=== PATIENT | female | born 2005 | race Caucasian/White ===

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

== ENCOUNTER 2024-06-11 06:18 | Emergency (ER) | payer MEDICAID, SELFPAY ==
--- NOTE | ~2024-06-11 | XR_ITS ---
CLINICAL HISTORY: s p reduction of anterior dislocation Exam: AP and scapular Y-views of the right shoulder. Comparison: January 20, 2022. Findings: The note states that the patient underwent reduction of an anterior dislocation. Please note that pre reduction images are not available for review. Alignment at the glenohumeral joint is anatomic on these images. No bony Bankart fractures identified. Chronic Hill-Sachs lesion is again seen. AC joint is anatomically aligned. Impression: Anatomic alignment with chronic Hill-Sachs lesion. This document has been electronically signed by: Jose Gracia MD on 06/11/2024 06:55:36
[2024-06-11 06:22] VITALS: BP 124/76; PULSE 20; O2SAT 99
--- NOTE | 2024-06-11 06:26 | ED.GENADULT ---
HPI - General Adult General Chief complaint: Extremity Injury, Upper Stated complaint: Non-traumatic shoulder dislocation x2hr Time Seen by Provider: 06/11/24 06:26 History of Present Illness ED Provider: Felicitas HPI narrative: The patient is a 18-year-old female who says that she had fallen asleep sleeping on her stomach with her arms above her head. She suspects that at some point she must have rolled in his strange way because she woke up in acute pain and a sense of having dislocated her right shoulder. She was uncomfortable and called an ambulance and came to the hospital. The patient says that she has had approximately 3 previous right shoulder dislocations. The 1st time was 2 or 3 years ago. She says that sometimes the shoulder has spontaneously reduced itself. She thinks she has had only 1 previous shoulder reduction in an emergency room. She thinks this was at [facility] 2 years ago. The patient says that she followed up with [facility] in [place] but she does not recall any specific recommendations. She says that all of her dislocations has been fairly spontaneous and without any significant associated force or injury. Related Data Previous Rx's ?Medication ?Instructions ?Recorded ibuprofen 400 mg tablet 400 mg PO Q6H PRN pain #14 tabs 06/11/24 Allergies Allergy/AdvReac Type Severity Reaction Status Date / Time No Known Allergies Allergy Verified 06/11/24 06:29 Review of Systems Review of Systems: Yes all other systems are reviewed and are negative [facility] Past Medical History Medical History (Updated 06/11/24 @ 06:53 by Brian Polk MD) Shoulder dislocation, recurrent Social History Social History Alcohol intake: never Smoked in Last 30 Days: No Use of substances other than those prescribed or required for medical reasons: No Advance Directives: No Advance Directives Information Provided: No Do you have a plan to hurt others: No Plan Patient : No Physical Exam ED Vital Signs: Vital Signs - 24 hr 06/11/24 06:27 06/11/24 07:07 Temperature 98.3 F 98.3 F Pulse Rate 69 69 Respiratory Rate 16 16 Blood Pressure 132/88 132/88 Pulse Oximetry 98 98 Oxygen Delivery Method Room Air Room Air BMI result Body Mass Index 21.5 Const Other: The patient is awake, alert, pleasant, cooperative. She had an obvious deformity to the right shoulder. HENMT Other: The face is unremarkable. The face is symmetrical. Mucous membranes moist. Eyes General: appearance normal, both eyes and all related structures Neck Neck: Yes full ROM Resp Effort & Inspection: normal respiratory effort Auscultation: clear to auscultation bilaterally Cardio Rate: regular rate Rhythm: regular rhythm Heart sounds: S1 normal heart sound present and S2 normal heart sound present Skin Other: The skin is intact and unremarkable Neuro Other: The patient is awake and alert with a normal mental status. She has grossly normal cranial nerves. She has intact strength and sensation in the right hand. Extrem Other: The patient had an obvious deformity at the right shoulder consistent with an anterior shoulder dislocation. There was dimpling of the skin over the glenoid socket. Medications Administered Discontinued Medications Generic Name Dose Route Start Last Admin Trade Name Freq PRN Reason Stop Dose Admin Acetaminophen 975 mg 06/11/24 06:52 06/11/24 07:00 Acetaminophen 325 Mg Tablet PO 06/11/24 06:53 975 mg ONCE ONE Administration Ibuprofen 400 mg 06/11/24 06:52 06/11/24 07:00 Ibuprofen 400 Mg Tablet PO 06/11/24 06:53 400 mg ONCE ONE Administration Procedures Orthopedic Joint Reduction Joint #1: Time Out Performed: Yes Side: right Joint Reduction Location: shoulder Analgesia: none Shoulder Technique Used (if applicable): scapula manipulation and external rotation Post-reduction neuro exam: intact Post-reduction vascular: intact Post Reduction X-Ray Obtained: Yes Post Reduction X-Ray Results: reduced Splint Applied: Yes Patient Tolerated Procedure: well Additional Comments: The the patient was placed on the stretcher so that she was sitting on the side of the stretcher. The head of the stretcher was elevated to 90 degrees. The patient's left hip and shoulder were adjacent to the upright portion of the stretcher. I performed scapular manipulation of the right scapula from behind the patient. An diagnostic assistant stabilized the right forearm and hand with the wrist supinated. In addition to scapular manipulation I put pressure on the patient's elbow to exert downward pressure on the arm. Meanwhile the right arm was externally rotated. Although there was no palpable sense of reduction when these maneuvers were finished the deformity had resolved and she was able to touch her right hand to her left shoulder. Postreduction x-ray showed normal anatomic alignment. The patient tolerated the procedure well. Shoulder immobilizer was applied after the x-ray. Medical Decision Making Medical Decision Making [facility] Narrative: The patient is a 18-year-old female who has had previous shoulder dislocations of the right arm. It seems as though her shoulder dislocations has been associated with no significant trauma. These seem to be spontaneous or near spontaneous events. She is also sometimes been able to reduce her shoulder herself or they have spontaneously reduced. She arrived with an obvious deformity consistent with a an anterior dislocation. She allowed us to make an effort to reduce the shoulder without sedation and this was successful. She was placed in a shoulder immobilizer. She has previously followed up with the [facility]. Now that she is 18 she will be given the contact information for [facility]. Discharge Plan Discharge Clinical Impression: Anterior dislocation of right shoulder Patient Disposition: Home, Self-Care Instructions: Shoulder Dislocation (ED), Shoulder Immobilizer (ED) Additional Instructions: Please contact the orthopedic office today for a follow up appointment next week. In the meantime you should keep your arm in the shoulder immobilizer to help reduce the risk of a re-dislocation. Wear the shoulder immobilizer while sleeping. You may remove the shoulder immobilizer during the day for hygiene and other practical purposes. When you remove the shoulder immobilizer do your best to keep your arm close to your body. This will reduce the risk of a read dislocation. I have sent a prescription for ibuprofen that you may use as needed for discomfort. My hope is that you will get an appointment at the orthopedic office next week and the orthopedic office will give you additional advice as to how long you need to continue wearing the shoulder immobilizer. Return to the emergency room if significantly worse. Prescriptions: New ibuprofen 400 mg tablet 400 mg PO Q6H PRN (Reason: pain) Qty: 14 0RF Referrals: [facility] [Provider Group] [facility] [Provider Group] (recurrent right shoulder dislocation) Stand Alone Forms: Work/School Release Interventions: ED Discharge Assessment Last Done: 06/11/24 07:07 Print Language: Kinyarwanda
[2024-06-11 06:27] VITALS: BP 132/88; PULSE 69; RESP 16; TEMP 36.8; O2SAT 98; BMI 21.5
[2024-06-11] MEDS: Acetaminophen 325 MG TABLET 975 MG PO (07:00)
[2024-06-11] MEDS: Ibuprofen 400 MG TABLET PO (07:00)
[2024-06-11 07:07] VITALS: BP 132/88; PULSE 69; RESP 16; TEMP 36.8; O2SAT 98
== END 2024-06-11 07:11 | disposition home or self-care (01) ==
PROVIDERS: Emergency Provider Emergency Medicine
DX: M24.411 Recurrent dislocation, right shoulder (principal); M25.511 Pain in right shoulder
CPT/HCPCS: 23650; 73030; 99283; 99284

== ENCOUNTER → 2024-06-11 06:26 | Outpatient (BNV) | payer MEDICAID, SELFPAY | PROVIDERS: Emergency Provider Emergency Medicine; Visit Provider Radiology Diagnostic Radiology | DX: M24.411 Recurrent dislocation, right shoulder (principal) | CPT/HCPCS: 73030 ==

== ENCOUNTER 2024-06-29 08:35 | Outpatient (REF) | payer MEDICAID, SELFPAY ==
--- NOTE | ~2024-06-29 | XR_ITS ---
EXAMINATION: XR SHOULDER, RIGHT CLINICAL INFORMATION: M25.511 - Pain in right shoulder COMPARISON: None available. TECHNIQUE: AP external rotation, Grashey, scapular Y, and axillary views of the right shoulder. FINDINGS: Normal bone mineralization. No fracture, dislocation, or suspicious bone lesion. Normal alignment. The glenohumeral joint is normal. The AC joint is normal. There is a type III acromion. No undersurface spurring. The subacromial space is preserved. Remainder of the soft tissue and bony structures appear normal. XR/XR shoulder RT min 2V IMPRESSION: Normal right shoulder. Electronically signed by: Antonio Becker MD 06/29/2024 03:22 PM EDT
--- OUTSIDE RECORDS SUMMARY | 2024-06-29 09:06 | XMS_ITS | Encounter Summary ---
Author Organization [employer] Address [address] [facility] [address] [place] [address] Care Team Providers Care Product Development Chemist Name Role Phone Leah Stroud TRANSFER IRON OPERATOR Primary Care Provider Reason for Visit * Reason Onset Date Comments Lab Orders 09/24/2023 Encounter Details Date Type Department Care Team (Late st Contact Info) Description 09/24/2023 Telephone [facility] [address] [place] [address] Leah Stroud NP [address] [place] [address] Lab Orders Social History Tobacco Use Types Packs/Day Years Used Date Smoking Tobacco: Never Passive Smoke Exposure: Never Smokeless Tobacco: Never Alcohol Use Standard Drinks/Week Comments Never 0 (1 standard drink = 0.6 oz pur e alcohol) Depression Answer Date Recorded Patient Health Questionnaire-9 Score 11 06/12/2023 Patient Health Questionnaire-9 Score 11 06/12/2023 Last PHQ-9: Questionnaire Data Not on file 0 06/12/2023 Housing Stability Answer Date Recorded What is your housing situation today? I have shamar castaneda 01/29/[address] you li ve. Do you have problems with any of the following? None of the above 01/29/2023 Food Insecurity Answer Date Recorded Within the past 12 months, y ou worried that your food would run out before you got money to buy more: Never True 01/29/2023 Within the past 12 months,th e food you bought just didn't last and you didn't have enough money to get more: Never True Transportation Answer Date Recorded In the past 12 months, has l ack of transportation kept you from medical appts, meetings, work or from getting things needed for daily living? No 01/29/2023 Utilities Answer Date Recorded In the past 12 months, has t he electric, gas, oil or water company threatened to shut off services in your home? No 01/29/2023 Depression Answer Date Recorded Patient Health Questionnaire-2 Score 3 06/12/2023 Comments Unknown Sex and Gender Information Value Date Recorded Sex Assigned at Female 01/15/2022 10:20 AM EDT Legal Sex Female 10:20 AM EDT Gender Identity Female 01/15/2022 10:20 AM EDT Sexual Orientation Choose not to disclose 2021 10:20 AM EDT documented as of this encounter Miscellaneous Notes * Telephone Encounter - Carrie Blanco RN - 09/24/2023 4:06 PM EDT T/C to pt. To inform TB test order is in system, No answer. LVM to call back on [phone]. 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 documented in this encounter Plan of Treatment Upcoming Encounters Date Type Department Care Team (Late st Contact Info) Description 09/09/2024 2:45 PM EDT Office Visit [facility] [address] [place] [address] Leah Stroud NP [address] [place] [address] documented as of this encounter Visit Diagnoses Not on filedocumented in this encounter Additional Health Concerns Assessment Noted Time PHQ-9 Depression Total Score: 11 024 9:49 AM EDT documented as of this encounter Care Teams Product Development Chemist Relationship Specialty Start Date End Date Leah Stroud NP [address] [place] [address] PCP - General Family Medicine 01/09/23 documented as of this encounter
--- OUTSIDE RECORDS SUMMARY | 2024-06-29 09:06 | XMS_ITS | Clinical Summary ---
Author Organization [employer] Address [address] [facility] 7[address] [place] [address] Care Team Providers Care Aquaculture Director Name Role Phone Leah Stroud PEOPLESOFT Primary Care Provider [phone] Allergies No known active allergies Medications * This document contains information received from the source organization and may not represent a complete record from that organization. ibuprofen 200 MG tablet 1-2 tablet by oral route every 6 hours prn pain, fever 9 Active multivitamin with minerals (Cerovite) 18-400 mg-mcg tablet tablet 1 tab by oral route daily 1 Active ibuprofen 200 MG tablet Take 200 mg by mouth 3 times daily. 9 Active polyethylene glycol, PEG, 3350 (MiraLax) 17 GM/SCOOP powder Take 17 g by mouth 1 (one) time. 9 Active ondansetron ODT (Zofran-ODT) 4 MG disintegrating tablet Take 4 mg by mouth every 8 (eight) hours if needed for nausea. 1 Active hydrOXYzine HCl (Atarax) 25 MG tabletIndications:M oderate anxiety Take 1 capsule by mouth s needed for anxiety. Do not take more than 4 capsules in one day 30 tablet 1 4 Active escitalopram (Lexapro) 5 MG tabletIndications:M oderate anxiety TAKE 1 TABLET BY MOUTH EVERY DAY 30 tablet 4 Active Active Problems Problem Noted Date Diagnosed Date Mood disorder 2023 Assessment & Plan (10/22/2023 1:43 PM EDT): During IBH Consult Melissa presenting with excessive worry/anxiety, difficulty controlling worry, restless/keyed up/On edge, difficulty concentrating/Mind going blank , irritability, and sleep disturbance difficulty staying asleep and Abnormally elevated mood, Decreased need for sleep, Flight of ideas, and Excessive goal directed activity, loss of interest in activities/hobbies, sense of emptiness, noticeable mood changes, and indecisiveness ; for a period of 0-6 mo, for all symptoms in the context of relationship issues. Melissa reports having mood swings over the last months. She was taking medication to improve sxs prescribed by psychiatrist, however, pt stopped taking meds after seeing slight improvement. Complicated romantic relationship, financial struggle and college transition is identified as trigger for sxs. During today's consult, pt was engaged with active, reflective listening and validation of emotions. Reviewed and assessed for risk, current stressors and protective factors using open-ended questions. Pt agreed to be evaluated by a psych provider and re-engage in med management. MDQ performed during session. Pt screened positive for Mood Disorder. Further evaluation needed to r/o Bipolar Dx. PLAN: (check all that apply) Continue with current services (defined as services in the past 12 months) Behavioral Health Integration Plan External OP therapy referral and OP psychiatry Referral Patient Self Plan Patient to utilize skills provided in intervention , Patient [facility] as needed, Comply with medication , Patient to engage in OP therapy , and Patient to reach out to [facility] as needed. Pt was referred to OP individual therapy. Referral will be re-sent as expedite including psychiatry services so that pt can get a psychiatry evaluation to rule out Bipolar Disorder. Mild depression 09/30/2023 Routine physical examination 05/01/2023 Assessment & Plan (05/01/2023 12:30 PM EST): -declined STI testing today -states flu vaccine obtained at [facility]. Will bring documentation -Healthy diet and exercise teaching completed: Eat a variety of fruit and vegetables, whole grains such as whole-wheat flour, bulgur (cracked wheat), oatmeal, and brown rice. Intake protein from beans, nuts, fish, and lean meats. Eat low-fat or fat- free dairy products. Limit highly processed foods such as hot dogs, sandwich meat, etc. 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) -has coping mechanism and breathing exercises provided by previous therapist -agreeable to clinical calling to re-initiate therapy services Assessment & Plan (10/22/2023 1:43 PM EDT): During IBH Consult Melissa presenting with excessive worry/anxiety, difficulty controlling worry, restless/keyed up/On edge, difficulty concentrating/Mind going blank , irritability, and sleep disturbance difficulty staying asleep and Abnormally elevated mood, Decreased need for sleep, Flight of ideas, and Excessive goal directed activity, loss of interest in activities/hobbies, sense of emptiness, noticeable mood changes, and indecisiveness ; for a period of 0-6 mo, for all symptoms in the context of relationship issues. Melissa reports having mood swings over the last months. She was taking medication to improve sxs prescribed by psychiatrist, however, pt stopped taking meds after seeing slight improvement. Complicated romantic relationship, financial struggle and college transition is identified as trigger for sxs. During today's consult, pt was engaged with active, reflective listening and validation of emotions. Reviewed and assessed for risk, current stressors and protective factors using open-ended questions. Pt agreed to be evaluated by a psych provider and re-engage in med management. MDQ performed during session. Pt screened positive for Mood Disorder. Further evaluation needed to r/o Bipolar Dx. PLAN: (check all that apply) Continue with current services (defined as services in the past 12 months) Behavioral Health Integration Plan External OP therapy referral and OP psychiatry Referral Patient Self Plan Patient to utilize skills provided in intervention , Patient to reach out to [facility] team as needed, Comply with medication , Patient to engage in OP therapy , and Patient to reach out to [facility] as needed. Pt was referred to OP individual therapy. Referral will be re-sent as expedite including psychiatry services so that pt can get a psychiatry evaluation to rule out Bipolar Disorder. Assessment & Plan (09/30/2023 12:05 PM EDT): PROGRESS NOTE: ID: Melissa is a 17 y.o. Black or choose not to disclose-identified cis-female with previous documented hx of Anxiety services including OP Psychotherapy who presents for Anxiety and Depression During IBH Consult Melissa presenting with loss of interests/pleasure , changes in sleep difficulty falling asleep, trouble concentrating, fatigue/loss of energy and excessive worry/anxiety, difficulty controlling worry, restless/keyed up/On edge, easily fatigued, difficulty concentrating/Mind going blank , irritability, and sleep disturbance difficulty falling asleep; for a period of 6-12 mo, for all symptoms in the context of adjusting to collage and financial struggle. PLAN: New/Additional Services needed PCP management Off-site services for Behavioral Health Integration Plan External OP therapy referral Patient Self Plan Patient to utilize skills provided in intervention , Patient to reach out to [facility] team as needed, Comply with medication , Patient to engage in OP therapy , and Patient to reach out to [facility] as needed Assessment & Plan (06/19/2023 1:32 PM EDT): -continue sertraline 25 mg daily -patient declined dose increase of sertraline at this time -will repeat MICAELA-7 questioner at next visit -continue non-pharmacological measures -follow-up 4 weeks via telehealth Assessment & Plan (06/12/2023 2:00 PM EDT): -MICAELA-7 and PHQ-9 scores 11 -will start sertraline for maintenance and trial hydroxyzine 25 mg for needed use -continue non-pharmacological measures - referral placed to assist with establishing with therapist -follow-up 1 week via telehealth to assess medication effectiveness Assessment & Plan (05/01/2023 10:56 AM EST): -MICAELA-7 score 11 -daily exercise encouraged -deep breathing exercises reinforced, meditation, and journaling advised - referral placed to assist with re-initiating therapy -will consider low dose medication if no improvement in symptoms -follow-up 6-8 weeks Viral wart on finger 05/01/2023 Assessment & Plan (05/01/2023 10:58 AM EST): -removed via cryotherapy -infection monitoring advised -return to clinic if infection presents or finger mobility affected Dysmenorrhea 12/27/2020 Hydronephrosis 06/01/2018 Hepatic calcification 10/30/2016 Resolved Problems Problem Noted Date Diagnosed Date Resolved Date Anxiety 07/26/2023 09/30/2023 Assessment & Plan (08/04/2023 1:01 PM EDT): Tolerating sertraline 25 mg, requesting trial of 50 mg, reestablishing therapy. Increase to 50 mg, monitor for side effects Follow up in 2 months with pcp sooner prn Encounters Date Type Department Care Team Description 06/11/2024 Orders Only [facility] External Provider, [facility] 06/01/2024 Telephone [facility] [address] [place] [address] Leah Stroud NP 05/29/2024 Population Health Risk Score Community [facility] ([facility]) Department [address] [id number] Provider, Population Health Generic 05/28/2024 Telephone [facility] [address] [place] [address] Chuck Fairbanks MA July recall 04/16/2024 Telephone [facility] [address] [place] [address] Chuck Fairbanks MA telephone call from Last 3 Months Immunizations Name Administration Dates Next Due DTaP 03/16/2009, 6,10/15/2005,12/18 HPV 9-Valent 05/15/2016,10/27/2015 Hep A, ped/adol, 2 dose 01/16/2007,01/23/2006 Hep B, Adolescent or Pediatric 4,10/15/2005,06/25/2005,12/18,2004 Hep B, adult 01/01/2024 Hib (HbOC) 01/23/2006,10/15/2005,2004 IPV 03/16/2009, 6,06/21/2005,03/29 Influenza injectable quadriv alent preservative free 12/27/2020,12/24/2019,04/09/2018 Influenza live intranasal trivalent 12/19/2012 Influenza, live, intranasal 12/19/2012 Influenza, seasonal, injecta ble, preservative free 01/01/2024 MMR 03/16/2009,01/23/2006 Meningococcal MCV4P ACYW-135 12/27/2020,10/27/19 Pfizer Covid-19 Vaccine 12+ Bivalent 08/10/2022 Pneumococcal Conjugate PCV 13 08/09/2009 Pneumococcal Conjugate PCV 7 10/15/2005, 06/25/2005,03/29/2005,12/18 Tdap 10/27/2015 Varicella 03/16/2009,01/23/2006 Family History Medical History Relation Name Comments Hypertension Mother Relation Name Status Comments Mother Social History Tobacco Use Types Packs/Day Years Used Date Smoking Tobacco: Never Passive Smoke Exposure: Never Smokeless Tobacco: Never Tobacco Cessation:Counseling Given: Not Answered Alcohol Use Standard Drinks/Week Comments Never 0 (1 standard drink = 0.6 oz pur e alcohol) Alcohol Answer Date Recorded How often do you have a drink containing alcohol ? 0 2023 How many drinks containing a lcohol do you have on a typical day when you are drinking? 0 2023 How often do you have six or more drinks on one occasion? 0 2023 Depression Answer Date Recorded Patient Health Questionnaire-9 Score 8 09/30/2023 Patient Health Questionnaire-9 Score 8 09/30/2023 Last PHQ-9: Questionnaire Data Not on file 0 09/30/2023 Housing Stability Answer Date Recorded What is [...] Answer Date Recorded Patient Health Questionnaire-2 Score 1 09/30/2023 Internet Access Answer Date Recorded Internet Access Q1 Yes 11/18/2023 Internet Access Q2 Not on file 11/18/2023 Comments Unknown Sex and Gender Information Value Date Recorded Sex Assigned at Female 01/15/2022 10:20 AM EDT Legal Sex Female 10:20 AM EDT Gender Identity Female 01/15/2022 10:20 AM EDT Sexual Orientation Choose not to disclose 2021 10:20 AM EDT Last Filed Vital Signs Vital Sign Reading Time Taken Comments Blood Pressure 116/79 2023 10:54 AM EDT Pulse 79 2023 10:54 AM EDT Temperature 35.7 ??C (96.2 ??F) 06/12/2023 9:43 AM ED T Respiratory Rate 26 2023 10:5 4 AM EDT Oxygen Saturation 99% 2023 10: 54 AM EDT Inhaled Oxygen Concentration - - Weight 83.6 kg (184 lb 6.4 oz) 10/16/19 10:54 AM EDT Height 177.8 cm (5' 10 ) 2023 10: 54 AM EDT Body Mass Index 26.46 2023 10:54 AM EDT Body Mass Index Percentile 86.37% 10/15 10:54 AM EDT Growth Chart: CDC (Girls, 2- 20 Years) Plan of Treatment Upcoming Encounters Date Type Department Care Team (Late st Contact Info) Description 09/09/2024 2:45 PM EDT Office Visit [facility] [address] [place] [address] Leah Stroud NP [address] [place] [address] Health Maintenance Due Date Last Done Comments Chlamydia and Gonorrhea Screening 2004 HIV Screening 2004 Family Planning (PISQ) 10/17/2019 Hepatitis C Screening 2022 Depression Screening 09/29/2024 09/30/2023, 09/30/19 24 Alcohol/Substance Use Screening 10/15/2024 2023 SDOH Screening 10/15/2024 2023 Tobacco Screening 10/15/2024 2023 DTaP/Tdap/Td Vaccines (6 - Td or Tdap) 10/26/2025 10/27/2015, 03/16/2009, 01/23/2006, Additional history exists Zoster Vaccines (1 of 2) 2054 RSV Patients and Patients Aged 60 years or older (1 - 1-dose 75+ series) 10/17/2079 HIB Vaccines Completed 01/23/2006, 09/17, 2004 Hepatitis A Vaccines Completed 01/16/2007, 01/24/20 IPV Vaccines Completed 03/16/2009, 09/17, 06/21/2005, Additional history exists MMR Vaccines Completed 03/16/2009, 01/23/2006 Varicella Vaccines Completed 03/16/2009, 01/23/2006 Pneumococcal Vaccine: Pediatrics (0 to 5 Years) and At-Risk Patients (6 to 49) Years) Completed 08/09/2009, 10/15/2005, 06/25/2005, Additional history exists Fluoride Varnish Discontinued 02/17/2015, , 12/19/2012, Additional history exists HPV Vaccines Completed 05/15/2016, 10/27/2015 Meningococcal Vaccine Completed 12/27/2020, 016 COVID-19 Vaccine Completed 11/13/2023, , 08/04/2021, Additional history exists Hepatitis B Vaccines Completed 01/01/2024, 11/19/2023, 10/15/2005, Additional history exists Influenza Vaccine Completed 01/01/2024, , 12/24/2019, Additional history exists RSV under 20 months Aged Out No longe r eligible based on patient's age to complete this topic Rotavirus Vaccines Aged Out No longer eligible based on patient's age to complete this topic Procedures Procedure Name Priority Date/Time Associated Diagnosis Comments XR SHOULDER 2+ VIEWS RIGHT Routine 06/11/2024 6:55 AM EDT TOPICAL APPLICATION OF FLUORIDE VARNISH Routine 02/17/2015 12:00 AM EST from Last 3 Months or Most Recently Relevant to Health Maintenance Results * XR Shoulder 2+ Views Right (06/11/2024 6:55 AM EDT) Anatomical Region Laterality Modality Upper Extremities, Shoulder Right Radi ographic Imaging 06/11/2024 6:55 AM EDT Narrative 06/11/2024 6:56 AM EDT ? [facility] ?[address] ?[place] [address] ?XRay Report ? Signed ? Patient: Fabienne,Melissa ?MR#: [id number] ? : 2005 ?Acct:[id number] ? Age/Sex: 18 / F ?ADM Date: 06/11/24 ? Loc: HO.ED ? Attending Dr: ? Ordering Physician: Brian Polk MD ?? Date of Service: 06/11/24 ?? Procedure(s): XR shoulder RT min 2V ?? Accession Number(s): [id number] ? cc: [facility]; Brian Polk MD ? CLINICAL HISTORY: s p reduction of anterior dislocation ? Exam: AP and scapular Y-views of the right shoulder. ? Comparison: January 20, 2022. ? Findings: ? The note states that the patient underwent reduction of an anterior ?? dislocation. Please note that pre reduction images are not available for ?? review. ?? Alignment at the glenohumeral joint is anatomic on these images. No bony ?? Bankart fractures identified. Chronic Hill-Sachs lesion is again seen. ?? AC joint is anatomically aligned. ? Impression: ? Anatomic alignment with chronic Hill-Sachs lesion. ? This document has been electronically signed by: Jose Gracia MD on ?? 06/11/2024 06:55:36 ? Dictated By: ?Jose Gracia MD ? Signed By: ?<Electronically signed by Jose Gracia MD in OV> ? 06/11/24 0656 ? DD/ 0655 ? TD/TT: 06/11/24 0655 ? Rail Car Repairer: ? Procedure Note Anay Weeks - 06/11/2024 [facility] [address] [facility] [place] [address] XRay Report Signed Patient: Melissa Loving#: [id number] : 2005Acct:[id number] Age/Sex: 18 / FADM Date: 06/11/24 Loc: HO.ED Attending Dr: Ordering Physician: Brian Polk MD Date of Service: 06/11/24 Procedure(s): XR shoulder RT min 2V Accession Number(s): [id number] cc: [facility]; Brian Polk MD CLINICAL HISTORY: s p reduction of anterior dislocation Exam: AP and scapular Y-views of the right shoulder. Comparison: January 20, 2022. Findings: The note states that the patient underwent reduction of an anterior dislocation. Please note that pre reduction images are not available for review. Alignment at the glenohumeral joint is anatomic on these images. No bony Bankart fractures identified. Chronic Hill-Sachs lesion is again seen. AC joint is anatomically aligned. Impression: Anatomic alignment with chronic Hill-Sachs lesion. This document has been electronically signed by: Jose Gracia MD on 06/11/2024 06:55:36 Dictated By: Jose Gracia MD Signed By: <Electronically signed by Jose Gracia MD in OV> 06/11/24 0656 DD/ TD/TT: 06/11/2455 Rail Car Repairer: [facility] External Provider IMG XR PROCEDURES Final Result from Last [address] [place] [address] [place] [address] C3 Care Teams Aquaculture Director Relationship Specialty Start Date End Date Leah Stroud NP [address] [place] [phone] PCP - General Family Medicine 01/09/23
--- OUTSIDE RECORDS SUMMARY | 2024-06-29 09:06 | XMS_ITS | Clinical Summary ---
Author Organization [facility] ity Address [address] [place] [address] Care Team Providers Care Power Line Installer Name Role Phone Unavailable Primary Care Provider Unavailabl e Social History Tobacco Use Types Packs/Day Years Used Date Smoking Tobacco: Never Assessed Comments Unknown Sex and Gender Information Value Date Recorded Sex Assigned at Not on file Legal Sex Female 5:05 AM EST Gender Identity Not on file Sexual Orientation Not on file Plan of Treatment Health Maintenance Due Date Last Done Comments Gonorrhea/Chlamydia Screening 2004 Varicella Vaccines (1 of 2 - 13+ 2-dose series) 2017 HPV Vaccines (1 - 3-dose series) 10/17/2019 Meningococcal B Vaccine (1 o f 2 - Standard) 2020 DTaP,Tdap,and Td Vaccines (1 - Tdap) 10/17/2023 Hepatitis B Vaccines (1 of 3 - 19+ 3-dose series) 10/17/2023 COVID-19 Vaccine (1 - 2023-2 5 season) 2023 Influenza Vaccine (Season Ended) 2024 HIB Vaccines Aged Out No longer eligi ble based on patient's age to complete this topic Hepatitis A Vaccines Aged Out No long er eligible based on patient's age to complete this topic IPV Vaccines Aged Out No longer eligi ble based on patient's age to complete this topic MMR Vaccines Aged Out No longer eligi ble based on patient's age to complete this topic Meningococcal ACWY Vaccine Aged Out N o longer eligible based on patient's age to complete this topic Pneumococcal Vaccine: Pediat rics (0 to 5 Years) and At-Risk Patients (6 to 64 Years) Aged Out No longer eligible b ased on patient's age to complete this topic RSV Immunization Patients Un althea 20 months Aged Out No longer eligible b ased on patient's age to complete this topic
--- OUTSIDE RECORDS SUMMARY | 2024-06-29 09:06 | XMS_ITS | Encounter Summary ---
Author Organization [employer] Address 75 [facility] 7t [place] [address] Care Team Providers Care Migrant Leader Name Role Phone Leah Stroud MOTOR POWER CONNECTOR Primary Care Provider Reason for Visit * Reason Onset Date Comments r/s PE 02/22/2023 Encounter Details Date Type Department Care Team ([facility] Contact Info) Description 02/22/2023 Telephone [facility] MEDICINE [address] [place] [address] Leah Stroud NP [address] [place] [address] r/s PE Social History Tobacco Use Types Packs/Day Years Used Date Smoking Tobacco: Never Passive Smoke Exposure: Never Smokeless Tobacco: Never Housing Stability Answer Date Recorded What is [...] off services in your home? No 01/29/2023 Comments Unknown Sex and Gender Information Value Date Recorded Sex Assigned at Female 01/15/2022 10:20 AM EDT Legal Sex Female 10:20 AM EDT Gender Identity Female 01/15/2022 10:20 AM EDT Sexual Orientation Choose not to disclose 2021 10:20 AM EDT documented as of this encounter Miscellaneous Notes * Telephone Encounter - Ced Donovan - 02/22/2023 11:58 AM EST Tc from pt requesting to r/s appt for PE on 02/06/2023 . Please contact pt at [phone] documented in this encounter Plan of Treatment Upcoming Encounters Date Type Department Care Team (Late st Contact Info) Description 09/09/2024 2:45 PM EDT Office Visit [facility] MEDICINE [address] [place] [address] Leah Stroud NP [address] [place] [address] documented as of this encounter Visit Diagnoses Not on filedocumented in this encounter Care Teams Migrant Leader Relationship Specialty Start Date End Date Leah Stroud NP [address] [place] [address] PCP - General Family Medicine 01/09/23 documented as of this encounter
== END 2024-06-29 08:36 | disposition home or self-care (01) ==
LOC: HO.HOSX 08:35
DX: M25.511 Pain in right shoulder (principal)
CPT/HCPCS: 73030; 99212

== ENCOUNTER 2024-06-29 10:51 | Outpatient (AMB) | payer MEDICAID, SELFPAY ==
--- NOTE | 2024-06-29 10:55 | A.OFFVIS_ITS ---
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 Per ED note patient fell asleep with her arms above her head and thinks at some point she rolled over the wrong way resulting in her waking up with pain. Hx of multiple right shoulder dislocation in past, states her shoulder has reduced on its own spontaneously in past. She says each time she has had a dislocation she has gone to the ED for it. She reports no pain, no numbness, no tingling currently. She says for a few days in the beginning she felt discomfort with lifting using her right arm but this has resolved. Allergies No Known Allergies Allergy (Verified 06/29/24 11:01) HPI HPI INSURANCE VERIFICATION REPRESENTATIVE- 2 week f/u shoulder dislocation: Details: Melissa is a 18 year old right hand dominant female who presents today for a new patient visit and emergency department follow up for her right shoulder. Per ED note patient fell asleep with her arms above her head and thinks at some point she rolled over the wrong way resulting in her waking up with pain. Hx of multiple right shoulder dislocation in past, states her shoulder has reduced on its own spontaneously in past. She says each time she has had a dislocation she has gone to the ED for it. She reports no pain, no numbness, no tingling currently. She says for a few days in the beginning she felt discomfort with lifting using her right arm but this has resolved. 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 Review of Systems Const All systems reviewed & are unremarkable except as noted in HPI and below Physical Exam Vital Signs: BMI result Body Mass Index 20.7 Extrem Other: On inspection, there is no visible deformity of the right shoulder No edema, erythema, ecchymosis noted No lacerations, abrasions, open areas No evidence of infection Patient reports no tenderness to palpation of the anterior, superior, posterior aspect of the shoulder, no tenderness to palpation of the greater tuberosity Patient is able to forward flex the bilateral shoulders to approximately 100 degrees without difficulty External rotation to approximately 80 degrees bilaterally without difficulty Of note, there does appear to be some hyperlaxity present diffusely in the joints of both the bilateral upper and lower extremities Distal sensation intact Capillary refill brisk Results Reviewed Results Reviewed: X-rays obtained in the office today and independently reviewed by me, Darryn Perkins PA-C, demonstrate chronic Hill-Sachs lesion, but no fracture or acute bony abnormality of the right shoulder. Assessment & Plan Assessment & Plan (1) Dislocation of right shoulder joint: Code(s): S43.004A - Unspecified dislocation of right shoulder joint, initial encounter Category: Medical Plan 1. Recurrent dislocation of right shoulder Most recent occurred while patient was sleeping Patient was seen with Dr. Borges, who was available to see the patient with me in clinic today, and a collaborative treatment plan was formed: I educated the patient about the condition. I discussed both operative and nonoperative treatment options. The patient would like to proceed with surgery. The risks and benefits of operative treatment were discussed with the patient and the patient wishes to proceed with surgery. These risks include, but are not limited to, risk of damage to blood vessels, nerves, tendons, infection, recurrence, incomplete relief of preoperative symptoms, persistent pain, possible need for further surgery, and the risks associated with regional blocks and/or anesthesia. Plan is to take the patient to the operating room at some point in the next few weeks for the following procedures: 1. Right shoulder capsular plication All of the preoperative paperwork including the consent was discussed today. All of the patient's questions were answered in the clinic today. The patient understands that they will be in contact with our assistant professor surgical technology to discuss scheduling their procedure. Patient denies diabetes, blood thinners, asthma, heart issues, lung issues, kidney issues, or current smoking. MR arthrogram also ordered to assess the health of the right shoulder joint prior to surgery Orders: Orders XR shoulder RT min 2V Today M25.511 - Pain in right shoulder FL arthrogram shoulder RT Today M19.011 - Primary osteoarthritis, right shoulder PT Evaluation and Treatment Today S43.004A - Unspecified dislocation of right shoulder joint, initial encounter Coding Level of Care Code New Pt Level 4 (47610) Diagnoses Dislocation of right shoulder joint S43.004A
[2024-06-29 11:01] VITALS: BMI 20.7
--- OUTSIDE RECORDS SUMMARY | 2024-06-29 12:41 | XMS_ITS | Encounter Summary ---
Author Organization [employer] Address 75 [facility] 7t [place] [address] Care Team Providers Care Pocket Stitcher Name Role Phone Leah Stroud COMMERCIAL LOAN ASSISTANT Primary Care Provider Reason for Visit * Reason Onset Date Comments Lab Orders 09/24/2023 Encounter Details Date Type Department Care Team (Late st Contact Info) Description 09/24/[address] [facility] MEDICINE [address] [place] [address] Leah Stroud NP [address] [place] [address] Lab Orders Social History Tobacco Use Types [...] No answer. LVM to call back on [phone]. 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 documented in this encounter Plan of Treatment Upcoming Encounters Date Type Department Care Team (Late st Contact Info) Description 09/09/2024 2:45 PM EDT Office Visit [facility] MEDICINE [address] [place] [address] Leah Stroud NP [address] [place] [address] documented as of this encounter Visit Diagnoses Not on filedocumented in this encounter Additional Health Concerns Assessment Noted Time PHQ-9 Depression Total Score: 11 024 9:49 AM EDT documented as of this encounter Care Teams Pocket Stitcher Relationship Specialty Start Date End Date Leah Stroud NP [address] [place] [address] PCP - General Family Medicine 01/09/23 documented as of this encounter
--- OUTSIDE RECORDS SUMMARY | 2024-06-29 12:41 | XMS_ITS ---
Author Name [facility] Organization Unknown Encounters Encounter Type Encounter Reason Primary Diagnosis Location Date Ambulatory [facility]. ([facility]) 03/04/2024
--- OUTSIDE RECORDS SUMMARY | 2024-06-29 12:41 | XMS_ITS | Clinical Summary ---
Author Organization [employer] Address 75 [facility] 7t [place] [address] Care Team Providers Care Diesel Service Journeyman Name Role Phone Leah Stroud UMBRELLA FRAME MAKER Primary Care Provider [phone] Allergies No known active allergies Medications * [...] intervention , [facility], Comply with medication , [...] testing today -states flu vaccine obtained at [facility]. 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) -has [...] intervention , Patient to reach out to [facility] team as needed, Comply with medication , [...] intervention , [facility], Comply with medication , [...] Department Care Team Description 06/11/2024 Orders Only [facility] External Provider, [facility] 06/01/2024 Telephone [facility] MEDICINE [address] [place] [address] Leah Stroud NP 05/29/2024 Population Health Risk Score Community [facility] (C3) Department [address] [phone] Provider, Population Health Generic 05/28/2024 Telephone [facility] MEDICINE [address] [place] [address] Chuck Fairbanks MA July recall 04/16/2024 Telephone [facility] MEDICINE [address] [place] [address] Chuck Fairbanks MA telephone call from Last [...] Description 09/09/2024 2:45 PM EDT Office Visit [facility] MEDICINE [address] [place] [address] Leah Stroud NP [address] [place] [address] Health Maintenance Due Date Last Done Comments [...] EDT Narrative 06/11/2024 6:56 AM EDT ? [facility] ?[address] ?[place] [address] ?XRay Report ? Signed ? Patient: Fabienne,Melissa ?MR#: [id number] ? : 2005 ?Acct:[id number] ? Age/Sex: 18 / F ?ADM Date: 06/11/24 ? Loc: HO.ED ? Attending Dr: ? Ordering Physician: Brian Polk MD ?? Date of Service: 06/11/24 ?? Procedure(s): XR shoulder RT min 2V ?? Accession Number(s): [id number] ? cc: [facility]; Brian Polk MD ? CLINICAL HISTORY: [...] DD/ 0655 ? TD/TT: 06/11/24 0655 ? Senior Solutions Engineer: ? Procedure Note Anay Weeks - 06/11/2024 [facility] [address] [facility] [place] [address] XRay Report Signed Patient: Melissa Loving#: [id number] : 2005Acct:[id number] Age/Sex: 18 / FADM Date: 06/11/24 Loc: HO.ED Attending Dr: Ordering Physician: Brian Polk MD Date of Service: 06/11/24 Procedure(s): XR shoulder RT min 2V Accession Number(s): [id number] cc: [facility]; Brian Polk MD CLINICAL HISTORY: s [...] in OV> 06/11/24 0656 DD/ TD/TT: 06/11/2455 Senior Solutions Engineer: [facility] External Provider IMG XR PROCEDURES Final Result from Last [address] [place] [address] C3 Care Teams Diesel Service Journeyman Relationship Specialty Start Date End Date Leah Stroud NP [address] [place] [address] PCP - General Family Medicine 01/09/23
--- OUTSIDE RECORDS SUMMARY | 2024-06-29 12:41 | XMS_ITS | Encounter Summary ---
Author Organization [employer] Address [address] [facility] 7t [place] [address] Care Team Providers Care Motor And Chassis Inspector Name Role Phone Leah Stroud DRY CLEANING COUNTER CLERK Primary Care Provider Reason for Visit * Reason Onset Date Comments r/s PE 02/22/2023 Encounter Details Date Type Department Care Team ([facility] Contact Info) Description 02/22/2023 Telephone [facility] MEDICINE [address] [place] [address] Leah Stroud NP [address] [place] [address] r/s PE Social History Tobacco Use Types [...] on 02/06/2023 . Please contact pt at [phone] documented in this encounter Plan of Treatment Upcoming Encounters Date Type Department Care Team (Late st Contact Info) Description 09/09/2024 2:45 PM EDT Office Visit [facility] MEDICINE [address] [place] [address] Leah Stroud NP [address] [place] [address] documented as of this encounter Visit Diagnoses Not on filedocumented in this encounter Care Teams Motor And Chassis Inspector Relationship Specialty Start Date End Date Leah Stroud NP [address] [place] [address] PCP - General Family Medicine 01/09/23 documented as of this encounter
--- OUTSIDE RECORDS SUMMARY | 2024-06-29 12:41 | XMS_ITS | Clinical Summary ---
Author Organization [facility] ity Address [address] [place] [address] Care Team Providers Care Glove Parts Cutter Name Role Phone Unavailable Primary Care Provider [...]
== END 2024-06-29 11:49 | disposition home or self-care (01) ==
LOC: HO.HOS 10:51
DX: S43.004A Unspecified dislocation of right shoulder joint, initial encounter (principal)
CPT/HCPCS: 99204

== ENCOUNTER → 2024-06-29 10:52 | Outpatient (BNV) | payer MEDICAID, SELFPAY | PROVIDERS: Visit Provider Radiology Diagnostic Radiology | DX: M25.511 Pain in right shoulder (principal) | CPT/HCPCS: 73030 ==

== ENCOUNTER 2024-07-14 12:36 | Outpatient (REF) | payer MEDICAID, SELFPAY ==
--- NOTE | ~2024-07-14 | FL_ITS ---
EXAMINATION: XR ARTHROGRAM SHOULDER, RIGHT CLINICAL INFORMATION: M19.011 - Primary osteoarthritis, right shoulder ; right shoulder instability; recurrent dislocations. TECHNIQUE: Following full and informed consent, the patient was placed in the supine position on the fluoroscopy table. Following this, the right shoulder joint was localized utilizing fluoroscopic guidance. The area was marked, and overlying skin prepped and draped in a sterile manner. 1% Lidocaine was utilized for anesthesia to the skin and subcutaneous tissues. Following this, a 22-gauge needle was advanced into the shoulder joint space utilizing fluoroscopic guidance, with the upper inner quadrant of the humeral head targeted. Intra-articular positioning was confirmed with a small amount of Omnipaque 300 contrast injection. Following this, approximately 5 mL of a mixture consisting of 0.1 mL Gadavist with 5 mL of Omnipaque 300 contrast material was injected into the joint space under fluoroscopic control. The needle was then removed. The patient tolerated the procedure well and there were no immediate complications. FLUOROSCOPY TIME: 12 seconds. Total number of fluoroscopic images : 1 DAP: 12.7 uGym^2 FINDINGS: No evidence of a full-thickness rotator cuff tear is present. FL/FL arthrogram shoulder RT IMPRESSION: 1. Successful intra-articular instillation of dilute gadolinium contrast into the right shoulder joint. The patient will undergo subsequent MRI. Electronically signed by: Antonio Becker MD 07/14/2024 02:28 PM EDT
--- NOTE | ~2024-07-14 | MR_ITS ---
EXAMINATION: MR ARTHROGRAM RIGHT SHOULDER CLINICAL INFORMATION: Right shoulder instability, recurrent dislocations; primary osteoarthritis right shoulder. COMPARISON: No prior MRI. Right shoulder radiographs 06/29/2024. TECHNIQUE: Multiplanar multisequence MR imaging of the right shoulder was done after the intra-articular administration of dilute gadolinium contrast. Examination performed on a 1.5 Adelita Siemens unit utilizing standard sequences. FINDINGS: Rotator Cuff and Biceps Tendon: Supraspinatus: There is a partial undersurface tear of the critical zone of the supraspinatus tendon measuring 7 mm in transverse diameter, and 9 mm in AP diameter, undermining approximately 30% of the tendon. (Series 9, image 12). Remainder of the tendon and muscle belly intact and normal in appearance. Infraspinatus: There is a partial 30% undersurface tear of the critical zone of the infraspinatus tendon, and in continuity the supraspinatus undersurface tear. Normal muscle belly. Subscapularis: Mild increased signal in the undersurface of the tendon, likely minimal fraying/tendinopathy No discrete tear. The muscle belly appears normal. Teres Minor: Intact and normal in signal. No definite tear. Normal muscle belly. Biceps Long Head: Normally located within the bicipital groove. Normal morphology. The tendon within the rotator interval is intact and normal in signal. AC Joint and Acromiohumeral Arch: The AC joint has a normal appearance without significant spurring or periarticular edema. There is a type II acromion. No significant undersurface spurs. No loss of the subacromial space. Glenohumeral Joint and Labrum: The anterior labrum is torn with an associated periosteal sleeve avulsion, extending into the anterior aspect of the superior labrum, and undermining the bicipital anchor. There is also a mild irregularity of the inferior labrum at the junction of the anterior, approximate 8:00 axis. Contrast undercutting the posterior labrum also suggesting mild tearing. The glenohumeral joint is normal in appearance without significant cartilage abnormality, subchondral bone plate edema, or degenerative change. No evidence of loose body. Osseous Structures: -There appears to be a subtle old Hill-Sachs deformity of the posterior lateral humeral head. No osseous edema to suggest contusion or fracture. No infiltrating abnormal bone marrow signal. Spino-glenoid Notch: Normal. Quadrilateral Space: Normal. Other: Mild increased signal in the subacromial/subdeltoid bursa, findings consistent with mild bursitis. MR/MR shoulder RT w con IMPRESSION: 1. Findings consistent with anterior labral tear with associated periosteal sleeve avulsion, extending into the anterosuperior labrum and undermining the bicipital anchor. Suspect subtle tearing of the posterior labrum as well. 2. Partial undersurface tear of the supraspinatus tendon within the critical zone, approximately 30% thickness. 3. Partial undersurface tear of the infraspinatus tendon within the critical zone, in continuity with the supraspinatus tear. 4. Mild subacromial/subdeltoid bursitis. 5. Subtle Hill-Sachs deformity of the humeral head suspected. No bony edema to suggest acute injury. Electronically signed by: Antonio Becker MD 07/16/2024 12:40 PM EDT
[2024-07-14] MEDS: Lidocaine HCl 1 % MPF 30 ML VIAL INTRAARTIC (13:57)
[2024-07-14] MEDS: iohexoL 300 MG/ML 50 ML INFUS..BTL 10 ML INTRAARTIC (13:59)
--- OUTSIDE RECORDS SUMMARY | 2024-07-14 14:30 | XMS_ITS | Encounter Summary ---
Author Organization [employer] Address 75 [facility] 7t [place] [address] Care Team Providers Care Information Technology Analyst Name Role Phone Leah Stroud REGULATORY COMPLIANCE SPECIALIST Primary Care Provider Reason for Visit * Reason Onset Date Comments r/s PE 02/22/2023 Encounter Details Date Type Department Care Team ([facility] Contact Info) Description 02/22/2023 Telephone [facility] MEDICINE [address] [place] [address] Leah Stroud NP [address] [place] [address] r/s PE Social History Tobacco Use Types [...] on 02/06/2023 . Please contact pt at [phone] documented in this encounter Plan of Treatment Upcoming Encounters Date Type Department Care Team (Late st Contact Info) Description 09/09/2024 2:45 PM EDT Office Visit [facility] MEDICINE [address] [place] [address] Leah Stroud NP [address] [place] [address] documented as of this encounter Visit Diagnoses Not on filedocumented in this encounter Care Teams Information Technology Analyst Relationship Specialty Start Date End Date Leah Stroud NP [address] [place] [address] PCP - General Family Medicine 01/09/23 documented as of this encounter
--- OUTSIDE RECORDS SUMMARY | 2024-07-14 14:30 | XMS_ITS | Clinical Summary ---
Author Organization [employer] Address [address] [facility] 7t [place] [address] Care Team Providers Care Associate Principal Name Role Phone Leah Stroud SHOP FOREMAN Primary Care Provider [phone] Allergies No known active allergies Medications * [...] intervention , [facility] as [facility], Comply with medication [...] today -states flu vaccine obtained [facility]. 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 [...] intervention , Patient to reach out to [facility] team as needed, Comply with medication [...] intervention , [facility] as needed, Comply with medication [...] Department Care Team Description 06/11/2024 Orders Only [facility] External Provider, [facility] 06/01/2024 Telephone [facility] MEDICINE [address] [place] [address] Leah Stroud NP 05/29/2024 Population Health Risk Score Community [facility] (C[facility]) Department [address] [address] Provider, Population Health Generic 05/28/2024 Telephone [facility] MEDICINE [address] [place] [address] Chuck Fairbanks MA July recall 04/16/2024 Telephone [facility] MEDICINE [address] [place] [address] Chuck Fairbanks MA telephone call from Last [...] Description 09/09/2024 2:45 PM EDT Office Visit [facility] MEDICINE [address] [place] [address] Leah Stroud NP [address] [place] [address] Health Maintenance Due Date Last Done Comments [...] EDT Narrative 06/11/2024 6:56 AM EDT ? [facility] ?[address] ?[place] [address] ?XRay Report ? Signed ? Patient: Fabienne,Melissa ?MR#: [id number] ? : 2005 ?Acct:[id number] ? Age/Sex: 18 / F ?ADM Date: 06/11/24 ? Loc: HO.ED ? Attending Dr: ? Ordering Physician: Brian Polk MD ?? Date of Service: 06/11/24 ?? Procedure(s): XR shoulder RT min 2V ?? Accession Number(s): [id number] ? cc: [facility]; Brian Polk MD ? CLINICAL HISTORY: s [...] DD/ 0655 ? TD/TT: 06/11/24 0655 ? Cad Intern: ? Procedure Note Anay Weeks - 06/11/2024 [facility] [address] [place] [address] XRay Report Signed Patient: Melissa Loving#: [id number] : 2005Acct:[id number] Age/Sex: 18 / FADM Date: 06/11/24 Loc: HO.ED Attending Dr: Ordering Physician: Brian Polk MD Date of Service: 06/11/24 Procedure(s): XR shoulder RT min 2V Accession Number(s): [id number] cc: [facility]; Brian Polk MD CLINICAL HISTORY: s p [...] in OV> 06/11/24 0656 DD/ TD/TT: 06/11/2455 Cad Intern: [facility] External Provider IMG XR PROCEDURES Final Result from Last [address] [place] [address] C3 Care Teams Associate Principal Relationship Specialty Start Date End Date Leah Stroud NP [address] [place] [address] PCP - General Family Medicine 01/09/23
--- OUTSIDE RECORDS SUMMARY | 2024-07-14 14:30 | XMS_ITS | Encounter Summary ---
Author Organization [employer] Address [address] [facility] 7t [place] [address] Care Team Providers Care Full Stack Python Developer Name Role Phone Leah Stroud METAL HARDENER Primary Care Provider Reason for Visit * Reason Onset Date Comments Lab Orders 09/24/2023 Encounter Details Date Type Department Care Team (Late st Contact Info) Description 09/24/2023 Telephone [facility] MEDICINE [address] [place] [address] Leah Stroud NP [address] [place] [address] Lab Orders Social History Tobacco Use Types [...] No answer. LVM to call back on [phone]. 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 documented in this encounter Plan of Treatment Upcoming Encounters Date Type Department Care Team (Late st Contact Info) Description 09/09/2024 2:45 PM EDT Office Visit [facility] MEDICINE [address] [place] [address] Leah Stroud NP [address] [place] [address] documented as of this encounter Visit Diagnoses Not on filedocumented in this encounter Additional Health Concerns Assessment Noted Time PHQ-9 Depression Total Score: 11 024 9:49 AM EDT documented as of this encounter Care Teams Full Stack Python Developer Relationship Specialty Start Date End Date Leah Stroud NP [address] [place] [address] PCP - General Family Medicine 01/09/23 documented as of this encounter
--- OUTSIDE RECORDS SUMMARY | 2024-07-14 14:30 | XMS_ITS | Clinical Summary ---
Author Organization [facility] ity Address [address] [place] [address] Care Team Providers Care Fringing Machine Operator Name Role Phone Unavailable Primary Care Provider [...]
== END 2024-07-14 12:37 | disposition home or self-care (01) ==
LOC: HO.XRAY 12:36
DX: S43.004A Unspecified dislocation of right shoulder joint, initial encounter (principal); M19.011 Primary osteoarthritis, right shoulder; M75.111 Incomplete rotator cuff tear or rupture of right shoulder, not specified as traumatic; M75.51 Bursitis of right shoulder
CPT/HCPCS: 23350; 73040; 73222; J2003; Q9967

== ENCOUNTER → 2024-07-14 12:47 | Outpatient (BNV) | payer MEDICAID, SELFPAY | PROVIDERS: Visit Provider Radiology Diagnostic Radiology | DX: M19.011 Primary osteoarthritis, right shoulder (principal) | CPT/HCPCS: 23350; 73040 ==

== ENCOUNTER 2024-10-23 13:13 | Outpatient (REF) | payer MEDICAID, SELFPAY ==
--- OUTSIDE RECORDS SUMMARY | 2024-10-23 13:16 | XMS_ITS | Encounter Summary ---
Author Organization [employer] Address [address] [facility] 7[address] [place] [address] Care Team Providers Care Acidity Tester Name Role Phone Leah Stroud MOBILE HOME INSTALLER Primary Care Provider Reason for Visit * Reason Onset Date Comments Lab Orders 09/24/2023 Encounter Details Date Type Department Care Team ([facility] st Contact Info) Description 09/24/2023 Telephone [facility] MEDICINE [address] [place], [place] [phone] Leah Stroud NP [address] [place] [address] Lab Orders Social History Tobacco Use Types [...] No answer. LVM to call back on [phone]. 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 documented in this encounter Plan of Treatment Not on file documented as of this encounter Visit Diagnoses Not on filedocumented in this encounter Additional Health Concerns Assessment Noted Time PHQ-9 Depression Total Score: 11 024 9:49 AM EDT documented as of this encounter Care Teams Acidity Tester Relationship Specialty Start Date End Date Leah Stroud NP [address] [place] [address] PCP - General Family Medicine 01/09/23 documented as of this encounter
--- OUTSIDE RECORDS SUMMARY | 2024-10-23 13:16 | XMS_ITS | Clinical Summary ---
Author Organization [facility] ity Address [address] [place] [address] Care Team Providers Care Hot Dog Vendor Name Role Phone Unavailable Primary Care Provider [...] Vaccine (1 - 2023-2 5 season) 2023 Depression Screening 03/18/2024 Influenza Vaccine (#1) 2024 HIB Vaccines Aged Out No longer [...] 5 Years) and At-Risk Patients (6 to 49 Years) Aged Out No longer eligible b ased on patient's age to complete this topic RSV Immunization Patients Un althea 20 months Aged Out No longer eligible b ased on patient's age to complete this topic
[2024-10-23 16:16] LABS: MANUAL DIFF FLAG NO
[2024-10-23 16:20] LABS: Hematocrit 41.5 % (37.0-47.0); Hemoglobin 14.1 g/dl (12.0-16.0); Imm Gran Abs Auto 0.01 X10*3/uL (0.00-0.03); Imm Gran Pct Auto 0.2 % (0.0-0.4); Lymphocytes Absolute Auto 1.7 X10*3/uL (1.2-4.9); Mean Corpuscular HGB Conc 34.0 g/dl (31.0-35.0); Mean Corpuscular Hemoglobin 31.2 pg (27.0-33.0); Mean Corpuscular Volume 91.8 fL (80.0-98.0); NRBC Abs Auto 0.000 X10*3/uL (0.0-0.012); NRBC Pct Auto 0.0 /100WBC (0.0-0.2); Platelet Count 319 X10*3/uL (160-400); Red Blood Count 4.52 X10*6/uL (4.20-5.50); White Blood Count 5.2 X10*3/uL (4.8-10.8)
[2024-10-23 16:30] LABS: Cholesterol 154 mg/dL (<200); HDL Cholesterol 36 mg/dL (>40); Triglycerides 137 mg/dL (<150)
[2024-10-26 08:03] LABS: Syphilis Screen Nonreactive (Nonreactive)
[2024-10-26 08:42] LABS: HBS Num1 > 1000.00 mIU/mL (0-7.99); HBc Num1 0.08 S/CO (0.00-0.79); HBsAGNum1 0.51 S/CO (0.00-0.99); HIV Num 1 0.06 S/CO (0.00-0.99); Hepatitis B Surface Antigen Negative (Negative); ~HepC Num1 0.09 S/CO (0.00-0.79); ~Hepatitis B Surface Antibody REACTIVE (Nonreactive); ~Hepatitis C Antibody Nonreactive (Nonreactive)
== END 2024-10-23 13:14 | disposition home or self-care (01) ==
LOC: HO.HHCL 13:13
PROVIDERS: PCP Nurse Practitioner; Visit Provider Nurse Practitioner
DX: Z00.00 Encounter for general adult medical examination without abnormal findings (principal); Z11.3 Encounter for screening for infections with a predominantly sexual mode of transmission; Z11.4 Encounter for screening for human immunodeficiency virus [HIV]
CPT/HCPCS: 36415; 80061; 85025; 86704; 86706; 86780; 86803; 87340; 87389

== ENCOUNTER 2024-11-13 13:01 | Outpatient (REF) | payer MEDICAID, SELFPAY ==
--- OUTSIDE RECORDS SUMMARY | 2024-11-13 13:23 | XMS_ITS | Encounter Summary ---
Author Organization [employer] Address [address] [facility] [address] [place] [address] Care Team Providers Care Electrolysis Needle Operator Name Role Phone Leah Stroud GEAR LAPPING MACHINE OPERATOR Primary Care Provider Reason for Visit * Reason Onset Date Comments Lab Orders 09/24/2023 Encounter Details Date Type Department Care Team ([facility] st Contact Info) Description 09/24/2023 Telephone [facility]INE [address] [place], [place] [phone] Leah Stroud NP [address] [place] [address] Lab Orders Social History Tobacco Use Types [...] No answer. LVM to call back on [phone]. * Telephone Encounter - Kellie Roa - [...] documented as of this encounter Care Teams Electrolysis Needle Operator Relationship Specialty Start Date End Date Leah Stroud NP [address] [place] [address] PCP - General Family Medicine 01/09/23 documented as of this encounter
--- OUTSIDE RECORDS SUMMARY | 2024-11-13 13:23 | XMS_ITS | Encounter Summary ---
Author Organization [employer] Address [address] [facility] [address] [place] [address] Care Team Providers Care Sexton Helper Name Role Phone Leah Stroud EQUINE MANAGER Primary Care Provider Reason for Visit * Reason Onset Date Comments r/s PE 02/22/2023 Encounter Details Date Type Department Care Team ([facility] st Contact Info) Description 02/22/2023 Telephone [facility] MEDICINE [address] [place] [address] Leah Stroud NP [address] [place] [address] r/s PE Social History Tobacco Use Types [...] on 02/06/2023 . Please contact pt at [phone] documented in this encounter Plan of Treatment Not on file documented as of this encounter Visit Diagnoses Not on filedocumented in this encounter Care Teams Sexton Helper Relationship Specialty Start Date End Date Leah Stroud NP [address] [place] [address] PCP - General Family Medicine 01/09/23 documented as of this encounter
--- OUTSIDE RECORDS SUMMARY | 2024-11-13 13:23 | XMS_ITS | Encounter Summary ---
Author Organization [facility] [facility] [employer] Address [address] [facility] [address] [place] [address] Care Team Providers Care Cull Grader Name Role Phone Leah Stroud NP Primary Care Provider [phone] Encounter Details Date Type Department Care Team ([facility] st Contact Info) Description 10/29/2024 Results Follow-Up [facility] MEDICINE [address] [place] [address] Leah Stroud NP [address] [place] [address] Hepatitis B Core Antibody, Total, Hepatitis B Surface Antibody, Qualitative, Hepatitis B Surface Antigen, EIA Social History Tobacco Use Types Packs/Day Years [...] Answer Date Recorded Patient Health Questionnaire-9 Score 0 09/09/2024 Patient Health Questionnaire-9 Score 0 09/09/2024 Last PHQ-9: Questionnaire Data Not on file 0 09/09/2024 Housing Stability Answer Date Recorded What is [...] Answer Date Recorded Patient Health Questionnaire-2 Score 0 09/09/2024 Internet Access Answer Date Recorded Internet Access Q1 Yes 11/18/2023 Internet Access Q2 Not on file 11/18/2023 Comments Unknown Sex and Gender Information Value Date Recorded Sex Assigned at Female 01/15/2022 10:20 AM EDT Legal Sex Female 10:20 AM EDT Gender Identity Female 01/15/2022 10:20 AM EDT Sexual Orientation Choose not to disclose 2021 10:20 AM EDT documented as of this encounter Plan of Treatment Not on file documented as of this encounter Visit Diagnoses Not on filedocumented in this encounter Additional Health Concerns Assessment Noted Time PHQ-9 Depression Total Score: 0 09/10/19 4:12 PM EDT documented as of this encounter Care Teams Cull Grader Relationship Specialty Start Date End Date Leah Stroud NP [address] [place] [address] PCP - General Family Medicine 01/09/23 documented as of this encounter
--- OUTSIDE RECORDS SUMMARY | 2024-11-13 13:23 | XMS_ITS | Encounter Summary ---
Author Organization [employer] Address [address] [facility] [address] [place] [address] Care Team Providers Care Spot Welder Name Role Phone Leah Stroud DISPUTE SPECIALIST Primary Care Provider Encounter Details Date Type Department Care Team ([facility] st Contact Info) Description 11/13/2024 Telephone [facility] MEDICINE [address] [place], [place] [phone] Leah Stroud NP [address] [place], [place] [phone] Social History Tobacco Use Types Packs/Day Years [...] encounter Miscellaneous Notes * Telephone Encounter - Roshni Merrill RN - 11/13/2024 12:49 PM EDT Patient presented to office requesting an order for tuberculosis screening for school. 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 Per standing order- lab order for TS spot created, printed, and given to the patient. documented in this encounter Plan of Treatment Scheduled Orders Name Type Priority Associated Diagnoses Orde r Schedule T-SPOT .TB Lab Routine Screening for tuberculosis Expected: 11/13/2024 (Approximate), Expires: 11/13/2025 documented as of this encounter Visit Diagnoses Diagnosis Screening for tuberculosis Screening examination for pulmonary tuberculosis documented in this encounter Additional Health Concerns Assessment Noted Time PHQ-9 Depression Total Score: 0 09/10/19 4:12 PM EDT documented as of this encounter Care Teams Spot Welder Relationship Specialty Start Date End Date Leah Stroud NP [address] [place] [address] PCP - General Family Medicine 01/09/23 documented as of this encounter
--- OUTSIDE RECORDS SUMMARY | 2024-11-13 13:24 | XMS_ITS | Clinical Summary ---
Author Organization [facility] ity Address [address] [place] [address] Care Team Providers Care Botanical Technical Officer Name Role Phone Unavailable Primary Care Provider [...]
--- OUTSIDE RECORDS SUMMARY | 2024-11-13 13:24 | XMS_ITS | Clinical Summary ---
Author Organization [employer] Address [address] [facility] 7t [place] [address] Care Team Providers Care Audio/Video Engineer Name Role Phone Leah Stroud IRINA Primary Care Provider [phone] Allergies No known active allergies Medications * This document contains information received from the source organization and may not represent a complete record from that organization. No known medications Active Problems Problem Noted Date Diagnosed Date [...] intervention , Patient to reach out to [facility] team as needed, Comply with medication [...] testing today -states flu vaccine obtained at [facility]. 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 team as needed, Comply with medication [...] cis-female with previous documented hx of Anxiety MH services including OP Psychotherapy who presents for [...] intervention , Patient to reach out to [facility] team as needed, Comply with medication , Patient to engage in OP BH therapy , and Patient to reach out to [facility] as needed Assessment & Plan (06/19/2023 1:32 [...] Encounters Date Type Department Care Team Description 11/13/2024 Telephone [facility] [address] [place] [address] Leah Stroud NP 10/30/2024 Telephone [facility] [address] [place] [address] Leah Stroud NP 10/29/2024 Results Follow-Up [facility] [address] [place] [address] Leah Stroud NP Hepatitis B Core Antibody, Total, Hepatitis B Surface Antibody, Qualitative, Hepatitis B Surface Antigen, EIA 10/29/2024 Results Follow-Up [facility] [address] [place] [phone] Leah Stroud NP CBC auto differential, Lipid Panel, Standard, HIV-1/2 Antigen and Antibodies, Fourth Generation, with Reflexes, Additional followed-up results: 2 10/23/[address] [address] Leah Stroud NP 09/09/2024 2:45 PM EDT Office Visit [address] [address] Leah Stroud NP Annual physical exam (Primary Dx); Encounter for health-related screening; Screening for venereal disease; Encounter for immunization 09/09/2024 Travel 09/08/[address] [address] Leah Stroud NP Chart Prep 09/01/2024 Patient Outreach [facility] [address] [place], [place] [phone] Leah Stroud NP Pre-visit Planning (SDOH negative. Tobacco screening negative. ) from Last 3 Months Immunizations Immunization Administration Dates Next Due DTaP 03/16/2009, 6,10/15/2005,12/18 HPV 9-Valent 05/15/2016,10/27/2015 Hep A, ped/adol, 2 dose 01/16/2007,01/23/2006 Hep B, Adolescent or Pediatric 4,10/15/2005,06/25/2005,12/18,2004 Hep B, adult 09/09/2024,01/01/2024 Hib (HbOC) 01/23/2006,10/15/2005,2004 IPV 03/16/2009, 6,06/21/2005,03/29 Influenza injectable quadriv alent preservative free 12/27/2020,12/24/2019,04/09/2018 Influenza live intranasal trivalent 12/19/2012 Influenza, live, intranasal 12/19/2012 Influenza, seasonal, injecta ble, preservative free 01/01/2024 MMR 03/16/2009,01/23/2006 Meningococcal MCV4P ACYW-135 12/27/2020,10/27/19 16 Meningococcal Polysaccharide A,C,Y,W-135 TT Conjugate 09/09/2024 Pfizer Covid-19 Vaccine 12+ Bivalent 08/10/2022 Pneumococcal [...] the past 12 months, has t he [employer], gas, oil or water company threatened to [...] Sign Reading Time Taken Comments Blood Pressure 110/79 09/09/2024 2:59 PM EDT Pulse 80 09/09/2024 2:59 PM EDT Temperature 36.7 C (98 F) 09/09/2024 2:59 PM EDT Respiratory Rate 20 09/09/2024 2:59 PM EDT Oxygen Saturation 99% 2023 10:54 AM EDT Inhaled Oxygen Concentration - - Weight 73.2 kg (161 lb 6.4 oz) 09/09/2024 2:59 P M EDT Height 177.8 cm (5' 10 ) 09/09/2024 2:59 PM EDT Body Mass Index 23.16 09/09/2024 2:59 PM EDT Plan of Treatment Health Maintenance Due Date Last Done Comments Chlamydia and Gonorrhea Screening 2004 Alcohol/Substance Use Screening 2016 Family Planning (PISQ) 10/17/2019 Meningococcal B Vaccine (1 of 2 - Standard) 2020 Influenza Vaccine (#1) 2024 , 12/27/2020, 12/24/2019, Additional history exists SDOH Screening 09/01/2025 09/01/2024 Depression Screening 09/09/2025 09/09/2024, 09/10/19 Disability Screening 09/09/2025 09/09/2024 Tobacco Screening 09/09/2025 09/09/2024 DTaP/Tdap/Td Vaccines (6 - Td or Tdap) 10/26/2025 10/27/2015, 03/16/2009, 01/23/2006, Additional history exists Zoster Vaccines (1 of 2) 2054 RSV Patients and Patients Aged 60 years or older (1 - 1-dose 75+ series) 10/17/2079 HIB Vaccines Completed 01/23/2006, 09/17, 2004 Hepatitis A Vaccines Completed 01/16/2007, 01/24/20 IPV Vaccines Completed 03/16/2009, 09/17, 06/21/2005, Additional history exists Pneumococcal Vaccine: Pediatrics (0 to 5 Years) and At-Risk Patients (6 to 49) Years Completed 08/09/2009, 10/15/2005, 06/25/2005, Additional history exists HPV Vaccines Completed 05/15/2016, 10/27/2015 COVID-19 Vaccine Completed 11/13/2023, , 08/04/2021, Additional history exists Hepatitis B Vaccines Completed 09/09/2024, 01/01/2024, 11/19/2023, Additional history exists Meningococcal Vaccine Completed 09/09/2024 , 12/27/2020, 10/27/2015 HIV Screening Completed 10/23/2024 Hepatitis C Screening Completed 10/23/2024 RSV under 20 months Aged Out No longe r eligible based on patient's age to complete this topic Rotavirus Vaccines Aged Out No longer eligible based on patient's age to complete this topic Procedures Procedure Name Priority Date/Time Associated Diagnosis Comments HEPATITIS B SURFACE ANTIGEN, EIA Routine 10/23/2024 1:16 PM EDT Healthcare maintenance HEPATITIS B SURFACE ANTIBODY, QUALITATIVE Routine 10/23/2024 1:16 PM EDT Healthcare maintenance HEPATITIS B CORE AB TOTAL Routine 10/23/2024 1:16 PM EDT Healthcare maintenance HEPATITIS C AB W/REFL TO HCV RNA, QN, PCR Routine 10/23/2024 1:16 PM EDT Screening for venereal disease SYPHILIS SCREEN Routine 10/23/2024 1:16 PM EDT Screening for venereal disease HIV 1/2 ANTIGEN/ANTIBODY, FOURTH GENERATION W/RFL Routine 10/23/2024 1:16 PM EDT Screening for venereal disease LIPID PANEL, STANDARD Routine 10/23/2024 1:16 PM EDT Encounter for health-related screening CBC WITH AUTO DIFFERENTIAL Routine 10/23/2024 1:16 PM EDT Encounter for health-related screening from Last 3 Months Results * Syphilis Screen (10/23/2024 1:16 PM EDT) Pathologist [facility] Syphilis Screen Nonreactive Nonreactive [facility] Blood Venous blood specimen / Unknown 10/23/2024 1:16 PM EDT 10/23/2024 4:12 PM EDT us Leah Stroud PLANT OPERATIONS MANAGER LAB BLOOD ORDERABLES Final Resu lt [facility] [address] [place] [phone] * CBC auto differential (10/23/2024 1:16 PM EDT) Pathologist [facility] White Blood Count 5.2 4.8 - 10.8 X10*3/uL [facility] Red Blood Count 4.52 4.20 - 5.50 X10*6/uL [facility] Hemoglobin 14.1 12.0 - 16.0 g/dl [facility] Hematocrit 41.5 37.0 - 47.0 % [facility] Mean Corpuscular Volume 91.8 80.0 - 98.0 fL [facility] Mean Corpuscular Hemoglobin 31.2 27.0 - 33.0 pg [facility] Mean Corpuscular HGB Conc 34.0 31.0 - 35.0 g/dl [facility] Red Cell Distribution Width 12.1 11.0 - 16.0 % [facility] Platelet Count 319 160 - 400 X10*3/uL [facility] Mean Platelet Volume 11.5 9.4 - 12.3 fL [facility] Neutrophils Percent Auto 60.4 45 - 73 % [facility] Imm Gran Pct Auto 0.2 0.0 - 0.4 % [facility] Lymphocytes Percent Auto 32.1 20 - 40 % [facility] Monocytes Percent Auto 5.4 2 - 11 % [facility] Eosinophils Percent Auto 1.3 0 - 4 % [facility] Basophils Percent Auto 0.6 0 - 2 % [facility] NRBC Pct Auto 0.0 0.0 - 0.2 /100WBC [facility] Neutrophils Absolute Auto 3.2 2.0 - 8.3 x10*3/uL [facility] Imm Gran Abs Auto 0.01 0.00 - 0.03 X10*3/uL [facility] Lymphocytes Absolute Auto 1.7 1.2 - 4.9 X10*3/uL [facility] Monocytes Absolute Auto 0.3 0.1 - 1.2 X10*3/uL [facility] Eosinophils Absolute Auto 0.1 0.0 - 0.4 X10*3/uL [facility] Basophils Absolute Auto 0.0 0.0 - 0.2 X10*3/uL [facility] NRBC Abs Auto 0.000 0.0 - 0.012 X10*3/uL [facility] Blood Venous blood specimen / Unknown 10/23/2024 1:16 PM EDT 10/23/2024 4:12 PM EDT Leah Stroud PLANT OPERATIONS MANAGER LAB BLOOD ORDERABLES Final Resu lt [facility] [address] [place] [phone] [phone] * Hepatitis C Antibody with Reflex to HCV, RNA, Quantitative, Real-Time PCR (10/23/2024 1:16 PM EDT) Hepatitis C Antibody Nonreactive Nonreactive [facility] Comment:Antibodies to HCV no t detected; does not exclude early acuteHCV infection. Blood Venous blood specimen / Unknown 10/23/2024 1:16 PM EDT 10/23/2024 4:10 PM EDT [facility] Final Resu lt Performing Organization Address [facility] Co de Phone Number [facility] [address] [place] [address] [phone] * Hepatitis B Surface Antigen, EIA (10/23/2024 1:16 PM EDT) Pathologist [facility] Hepatitis B Surface Ag Negative Negative [facility] Blood Venous blood specimen / Unknown 10/23/2024 1:16 PM EDT 10/23/2024 4:10 PM EDT [facility] Final Resu lt Performing Organization Address [facility] de Phone Number [facility] [address] [place] [address] [phone] * Hepatitis B Core Antibody, Total (10/23/2024 1:16 PM EDT) Pathologist [facility] Hepatitis B Core Antibody Nonreactive Nonreactive [facility] Blood Venous blood specimen / Unknown 10/23/2024 1:16 PM EDT 10/23/2024 4:10 PM EDT Result [facility] LAB BLOOD ORDERABLES Final Resu lt Performing Organization Address [facility] de Phone Number [facility] [address] [place] [address] [phone] * HIV-1/2 Antigen and Antibodies, Fourth Generation, with Reflexes (10/23/2024 1:16 PM EDT) Pathologist [facility] HIV AB/AG Nonreactive Nonreactive [facility] Comment:HIV-1 p24 Ag and/or HIV-1/HIV-2 Ab not detected.A test result that is nonreactive does not exclude thepossibility of exposure to or infection with HIV-1 and/orHIV-2. Nonreactive results in this assay for individualswith prior exposure to HIV-1 and/or HIV-2 may be due toantigen and antibody levels that are below the limit ofdetection of this assay.The Recurly Alinity HIV Ag/Ab Combo assay result andsupplemental assay results should be interpreted inconjunction with the patient's clinical presentation,history and other laboratory results. If the results areinconsistent with clinical evidence, additional testing issuggested to confirm the result. Blood Venous blood specimen / Unknown 10/23/2024 1:16 PM EDT 10/23/2024 4:10 PM EDT [facility] LAB BLOOD ORDERABLES Final Resu lt Performing Organization Address [facility] Co de Phone Number [facility] [address] [place] [phone] * Hepatitis B Surface Antibody, Qualitative (10/23/2024 1:16 PM EDT) ~Hepatitis B Surface Antibody REACTIVE Nonreactive [facility] Comment:REACTIVE: > 11.99 mI U/mL Blood Venous blood specimen / Unknown 10/23/2024 1:16 PM EDT 10/23/2024 4:10 PM EDT [facility] LAB BLOOD ORDERABLES Final Resu lt Performing Organization Address [facility] Co de Phone Number [facility] [address] [place] [address] [phone] * (ABNORMAL) Lipid Panel, Standard (10/23/2024 1:16 PM EDT) Triglycerides 137 <150 mg/dL [facility] Comment:Desirable Triglyceri de: less than 150 mg/dLBorderline High Triglyceride 150-199 mg/dLHigh Triglyceride: 200-499 mg/dLVery High Triglyceride: greater than or equal to 5OO mg/dL Cholesterol 154 <200 mg/dL [facility] Comment:Desirable Cholestero l: less than 200 mg/dLBorderline High Cholesterol: 200-239 mg/dLHigh Cholesterol: greater than 239 mg/dL LDL Cholesterol Calculated 91 <100 mg/dL [facility] Comment:Desirable LDL: less than 100 mg/dLNear Optimal/Above Optimal LDL: 110- 129 mg/dLBorderline High LDL: 130-159 mg/dLHigh LDL: 160-189 mg/dLVery High LDL: greater than or equal to 190 mg/dL HDL Cholesterol 36(L) >40 mg/dL [facility] Comment:Desirable HDL: great er than 40 mg/dL Note: This HDL assay may give artificially low results in patients with liver disease. Blood Venous blood specimen / Unknown 10/23/2024 1:16 PM EDT 10/23/2024 4:12 PM EDT us Leah Stroud NP LAB BLOOD ORDERABLES Final Resu lt [facility] [address] [place] [phone] from Last 3 Months Insurance [facility] C3 Care Teams Audio/Video Engineer Relationship Specialty Start Date End Date Leah Stroud NP [address] [place] [phone] PCP - General Family Medicine 01/09/23
--- OUTSIDE RECORDS SUMMARY | 2024-11-13 13:24 | XMS_ITS ---
Author Name [facility] Organization Unknown Encounters Encounter Type Encounter Reason Primary Diagnosis Location Date Ambulatory [facility]. ([facility]) 03/04/2024
[2024-11-17 10:03] LABS: TS Negative Control Passed; TS Panel A 0; TS Panel B 0; TS Positive Control Passed; TSpotTB Negative (Negative)
== END 2024-11-13 13:02 | disposition home or self-care (01) ==
LOC: HO.HHCL 13:01
PROVIDERS: PCP Nurse Practitioner; Visit Provider Nurse Practitioner
DX: Z11.1 Encounter for screening for respiratory tuberculosis (principal)
CPT/HCPCS: 36415; 86481

== ENCOUNTER 2025-01-06 17:21 | Outpatient (REF) | payer MEDICAID, SELFPAY ==
--- OUTSIDE RECORDS SUMMARY | 2025-01-06 10:20 | XMS_ITS | Encounter Summary ---
Author Organization [employer] Address [address] [facility] 7t [place] [address] Care Team Providers Care Head Men'S Tennis Coach Name Role Phone Leah Stroud SUPERVISOR ELECTRIC MOTOR TESTING Primary Care Provider [phone] Reason for Visit * Reason Comments Sore Throat Encounter Details Date Type Department Care Team ([facility] st Contact Info) Description 01/06/2025 10:20 AM EDT Office Visit [facility] [address] [place] [address] Onel Caputo MD [address] [place] [address] Acute pharyngitis, unspecified etiology (Primary Dx) Social History Tobacco Use Types Packs/Day Years [...] AM EDT documented as of this encounter Last Filed Vital Signs Vital Sign Reading Time Taken Comments Blood Pressure 120/78 01/06/2025 10:10 AM EDT Pulse 73 01/06/2025 10:10 AM EDT Temperature 36.7 C (98.1 F) 01/06/2025 10:10 AM EDT Respiratory Rate 17 01/06/2025 10:10 AM EDT Oxygen Saturation 99% 01/06/2025 10:10 AM EDT Inhaled Oxygen Concentration - - Weight 71.9 kg (158 lb 9.6 oz) 01/06/2025 10:10 AM EDT Height - - Body Mass Index 22.76 09/09/2024 2:59 PM EDT documented in this encounter Progress Notes * Onel Cpauto MD - 01/06/2025 10:20 AM EDT Subjective Patient ID: Melissa Loving is a 19 y.o. female who presents for Sore Throat. Last seen 09/09/24 for PE. [place] [facility] [place] [facility] Here with friend. Has had symptoms for 4-5 days. Has swollen glands. Decreased appetite. Drinking well and good uop. Denies fever, cough, vomiting or diarrhea. PMH-Patient Active Problem List: Dysmenorrhea Hepatic calcification Hydronephrosis Moderate anxiety Mild depression Mood disorder (CMS/HCC) Review of Systems Constitutional: Negative for fever. HENT: Positive for sore throat. Negative for rhinorrhea. Eyes: Negative for visual disturbance. Respiratory: Negative for cough and shortness of breath. Gastrointestinal: Negative for abdominal pain, diarrhea and vomiting. Musculoskeletal: Negative for back pain. Skin: Negative for rash. Psychiatric/Behavioral: Negative for behavioral problems. Objective Physical Exam Constitutional: General: She is not in acute distress (Comfortable. Easily gives history.). HENT: Right Ear: Tympanic membrane normal. Left Ear: Tympanic membrane normal. Nose: No rhinorrhea. Mouth/Throat: Mouth: Mucous membranes are moist. Comments: 2+symmetric tonsils with posterior pharyngeal erythema. Eyes: Conjunctiva/sclera: Conjunctivae normal. Neck: Comments: Tender a/c nodes. Cardiovascular: Rate and Rhythm: Normal rate and regular rhythm. Heart sounds: No murmur heard. Pulmonary: Effort: Pulmonary effort is normal. No respiratory distress. Breath sounds: Normal breath sounds. Abdominal: Palpations: Abdomen is soft. Tenderness: There is no abdominal tenderness. There is no guarding. Comments: No splenomegaly noted. Skin: General: Skin is warm. Capillary Refill: Capillary refill takes less than 2 seconds. Findings: No rash. Neurological: Mental Status: She is alert and oriented to person, place, and time. Psychiatric: Behavior: Behavior normal. Assessment/Plan Diagnoses and all orders for this visit: Acute pharyngitis, unspecified etiology Having ST and painful cervical adenopathy. Acting well and hydrated. COVID, Flu and strep rapid testing neg. C/w other viral illness. -Symptomatic relief discussed. -Ibuprofen/Acetaminophen prn. -Push fluids. -Throat culture sent. -RTC or ED if respiratory distress, unable to take fluids, decreased u/o, no improvement, worse or concerns. documented in this encounter Plan of Treatment Scheduled Orders Name Type Priority Associated Diagnoses Orde r Schedule Culture, Throat Microbiology Routine Acute pharyngitis, unspecified etiology Ordered: 01/06/2025 documented as of this encounter Procedures Procedure Name Priority Date/Time Associated Diagnosis Comments POCT INFLUENZA B (ID NOW RAPID MOLECULAR) Routine 01/06/2025 10:41 AM EDT Acute pharyngitis, unspecified etiology POCT INFLUENZA A (ID NOW RAPID MOLECULAR) Routine 01/06/2025 10:41 AM EDT Acute pharyngitis, unspecified etiology POCT COVID-19 AG BUSBY ID NOW Routine 01/06/2025 10:41 AM EDT Acute pharyngitis, unspecified etiology POCT RAPID STREP A Routine 01/06/2025 10 :41 AM EDT Acute pharyngitis, unspecified etiology documented in this encounter Results * POCT COVID-19 Ag Busby ID NOW (01/06/2025 10:41 AM EDT) Pathologist [facility] Coronavirus Antigen PCR Negative Negative, Indeterminate, None Detected, Invalid, Specimen unsatisfactory for evaluation, Weakly Positive, 2+ Swab 01/06/2025 10:4 1 AM EDT us Onel Caputo MD POINT OF CARE TEST ENTER/EDIT O RDERABLES Final Result * Influenza A (ID NOW Rapid Molecular) (01/06/2025 10:41 AM EDT) [facility] Influenza A Negative Negative, Indeterminate [facility] Swab 01/06/2025 10:4 1 AM EDT us Onel Caputo MD POINT OF CARE TEST ENTER/EDIT O RDERABLES Final Result [facility] [address] [place] [phone] * Influenza B (ID NOW Rapid Molecular) (01/06/2025 10:41 AM EDT) [facility] Influenza B Negative Negative, Indeterminate [facility] Swab 01/06/2025 10:4 1 AM EDT us Onel Caputo MD POINT OF CARE TEST ENTER/EDIT O RDERABLES Final Result Performing Organization Address [facility] Co de Phone Number [facility] [address] [place] [address] [phone] * POCT rapid strep A manually resulted (01/06/2025 10:41 AM EDT) Rapid Strep A Screen Negative Negative, None Detected [facility] Swab 01/06/2025 10:4 1 AM EDT us Onel Caputo MD POINT OF CARE TEST ENTER/EDIT O RDERABLES Final Result Performing Organization Address [facility] de Phone Number [facility] [address] [place] [phone] [phone] documented in this encounter Visit Diagnoses Diagnosis Acute pharyngitis, unspecified etiology- Primary documented in this encounter Additional Health Concerns Assessment Noted Time PHQ-9 Depression Total Score: 0 09/10/19 25 4:12 PM EDT documented as of this encounter Care Teams Head Men'S Tennis Coach Relationship Specialty Start Date End Date Leah Stroud NP [address] [place] [phone] PCP - General Family Medicine 01/09/23 documented as of this encounter
--- OUTSIDE RECORDS SUMMARY | 2025-01-06 22:13 | XMS_ITS | Encounter Summary ---
Author Organization [employer] Address [address] [facility] 7t [place] [address] Care Team Providers Care Software Sales Manager Name Role Phone Leah Stroud BOX TURNER Primary Care Provider [phone] Encounter Details Date Type Department Care Team (Latest Contact Info) Description 01/06/2025 Travel Social History Tobacco Use Types Packs/Day Years [...] documented as of this encounter Care Teams Software Sales Manager Relationship Specialty Start Date End Date Leah Stroud NP [address] [place] [phone] PCP - General Family Medicine 01/09/23 documented as of this encounter
--- OUTSIDE RECORDS SUMMARY | 2025-01-06 22:13 | XMS_ITS | Encounter Summary ---
Author Organization [employer] Address [address] [facility] 7t [place] [address] Care Team Providers Care Online Content Coordinator Name Role Phone Leah Stroud [employer] TECHNICAL MANAGER Primary Care Provider [phone] Encounter Details Date Type Department Care Team (Latest Contact Info) Description 01/05/2025 Travel Social History Tobacco Use Types Packs/Day [...] documented as of this encounter Care Teams Online Content Coordinator Relationship Specialty Start Date End Date Leah Stroud NP [address] [place] [phone] PCP - General Family Medicine 01/09/23 documented as of this encounter
--- OUTSIDE RECORDS SUMMARY | 2025-01-06 22:13 | XMS_ITS | Encounter Summary ---
Author Organization [employer] Address [address] [facility] 7t [place] [address] Care Team Providers Care Junior Legal Secretary Name Role Phone Leah Stroud PACKING CLERK Primary Care Provider Reason for Visit * Reason Onset Date Comments r/s PE 02/22/2023 Encounter Details Date Type Department Care Team ([facility] st Contact Info) Description 02/22/2023 Telephone [facility] [address] [place] [address] Leah Stroud NP [address] [place] [address] r/s PE Social History Tobacco Use Types [...] on 02/06/2023 . Please contact pt at [phone] documented in this encounter Plan of Treatment Not on file documented as of this encounter Visit Diagnoses Not on filedocumented in this encounter Care Teams Junior Legal Secretary Relationship Specialty Start Date End Date Leah Stroud NP [address] [place] [address] PCP - General Family Medicine 01/09/23 documented as of this encounter
--- OUTSIDE RECORDS SUMMARY | 2025-01-06 22:13 | XMS_ITS | Clinical Summary ---
Author Organization [facility] ity Address [address] [place] [address] Care Team Providers Care Casting Room Helper Name Role Phone Unavailable Primary Care Provider [...] of 3 - 19+ 3-dose series) 10/17/2023 Depression Screening 03/18/2024 COVID-19 Vaccine (1 - 2023-2 5 season) 2024 Influenza Vaccine (#1) 2024 RSV Immunization Adult Patie nts (1 - 1-dose 75+ series) 10/17/2079 HIB Vaccines Aged Out No longer eligi [...]
--- OUTSIDE RECORDS SUMMARY | 2025-01-06 22:13 | XMS_ITS | Clinical Summary ---
Author Organization [employer] Address [address] [facility] 7t [place] [address] Care Team Providers Care Spice Fumigator Name Role Phone Leah Stroud FLAME PLANER Primary Care Provider [phone] Allergies No known active allergies Medications * This document contains information received from the source organization and may not represent a complete record from that organization. ibuprofen 400 MG tablet Take 1 tablet by mouth every 6 (six) hours if needed for pain. 06/11/2024 Active Active Problems Problem Noted Date Diagnosed [...] to reach out to [facility] team as needed, Comply with medication [...] testing today -states flu vaccine obtained at [facility]. 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TB 11/13/[address] [address] Leah Stroud NP 10/30/2024 Telephone [facility] [address] [place] [address] Leah Stroud NP 10/29/2024 Results Follow-Up [address] [address] Leah Stroud NP Hepatitis B Core Antibody, Total, Hepatitis B Surface Antibody, Qualitative, Hepatitis B Surface Antigen, EIA 10/29/2024 Results Follow-Up [address] [address] Leah Stroud NP CBC auto differential, Lipid Panel, Standard, HIV-1/2 Antigen and Antibodies, Fourth Generation, with Reflexes, Additional followed-up results: 2 10/23/[address] [address] Leah Stroud NP from Last 3 Months Immunizations Immunization Administration [...] your housing situation today? I have shamar leonel 01/29/[address] you li [...] 9.6 oz) 01/06/2025 10:10 AM EDT Height 177.8 cm (5' 10 ) 09/09/2024 2:59 PM EDT Body Mass Index 22.76 09/09/2024 2:59 PM EDT Plan of Treatment Health Maintenance Due Date Last Done Comments Chlamydia and Gonorrhea Screening 2004 Alcohol/Substance Use Screening 2016 Family Planning (PISQ) 10/17/2019 Meningococcal B Vaccine (1 of 2 - Standard) 2020 SDOH Screening 09/01/2025 09/01/2024 Depression Screening 09/09/2025 09/09/2024, 09/10/19 25 Disability Screening 09/09/2025 09/09/2024 DTaP/Tdap/Td Vaccines (6 - Td or Tdap) 10/26/2025 10/27/2015, 03/16/2009, 01/23/2006, Additional history exists Tobacco Screening 01/06/2026 01/06/2025 Zoster Vaccines (1 of 2) 2054 RSV [...] Completed 10/23/2024 Hepatitis C Screening Completed 10/23/2024 Influenza Vaccine Completed 12/18/2024, , 12/27/2020, Additional history exists RSV under 20 months Aged Out No longe r eligible based on patient's age to complete this topic Rotavirus Vaccines Aged Out No longer eligible based on patient's age to complete this topic Procedures Procedure Name Priority Date/Time Associated Diagnosis Comments POCT COVID-19 AG BUSBY ID NOW Routine 01/06/2025 10:41 AM EDT Acute pharyngitis, unspecified etiology POCT INFLUENZA A (ID NOW RAPID MOLECULAR) Routine 01/06/2025 10:41 AM EDT Acute pharyngitis, unspecified etiology POCT INFLUENZA B (ID NOW RAPID MOLECULAR) Routine 01/06/2025 10:41 AM EDT Acute pharyngitis, unspecified etiology POCT RAPID STREP A Routine 01/06/2025 10 :41 AM EDT Acute pharyngitis, unspecified etiology T-SPOT(R).TB Routine 11/13/2024 1:11 PM EDT HEPATITIS B SURFACE ANTIGEN, EIA Routine 10/23/2024 [...] screening from Last 3 Months Results * Influenza B (ID NOW Rapid Molecular) (01/06/2025 10:41 AM EDT) Influenza B Negative Negative, Indeterminate [facility] Swab 01/06/2025 10:4 1 AM EDT us Onel Caputo MD POINT OF CARE TEST ENTER/EDIT O RDERABLES Final Result [facility] [address] [place] [address] [phone] * Influenza A (ID NOW Rapid Molecular) (01/06/2025 10:41 AM EDT) Influenza A Negative Negative, Indeterminate [facility] Swab 01/06/2025 10:4 1 AM EDT us Onel Caputo MD POINT OF CARE TEST ENTER/EDIT O RDERABLES Final Result Performing Organization Address [facility]/ZIP Co de Phone Number [facility] [address] [place] [phone] * POCT COVID-19 Ag Busby ID NOW (01/06/2025 10:41 AM EDT) [facility] Coronavirus Antigen PCR Negative Negative, Indeterminate, None Detected, Invalid, Specimen unsatisfactory for evaluation, Weakly Positive, 2+ Swab 01/06/2025 10:4 1 AM EDT us Onel Caputo MD POINT OF CARE TEST ENTER/EDIT O RDERABLES Final Result * POCT rapid strep A manually resulted (01/06/2025 10:41 AM EDT) [facility] Rapid Strep A Screen Negative Negative, None Detected [facility] Swab 01/06/2025 10:4 1 AM EDT us Onel Caputo MD POINT OF CARE TEST ENTER/EDIT O RDERABLES Final Result Performing Organization Address [facility] Co de Phone Number [facility] [address] [place] [phone] * T-SPOT??.TB (11/13/2024 1:11 PM EDT) [facility] T Spot TB Negative Negative [facility] Comment:A negative test resu lt does not exclude the possibilityof exposure to or infection with Mycobacteriumtuberculosis (M. tuberculosis). Patients with recentexposure to TB infected individuals exhibiting anegative T-SPOT.TB result should be considered forretesting within 6 weeks or if other relevant clinicalsymptoms indicate. Results from T-SPOT.TB testing mustbe used in conjunction with each individual'sepidemiological history, current medical status,and results of other diagnostic evaluations.The T-SPOT.TB test is qualitative and results arereported as positive, borderline, or negative, giventhat the test controls perform as expected. In linewith the Centers for Disease Control and Prevention's2010 recommendation to report quantitative measurementsalongside the qualitative result, the laboratoryprovides spot counts for informational purposes only.The T-SPOT.TB test should not be interpreted as aquantitative test. TS PANEL A 0 [facility] TS PANEL B 0 [facility] Negative Control Passed [facility] Positive Control Passed [facility] Comment:For additional infor garfield, please refer tohttp://education.Airbrite/faq/CLW782(This link is being provided for informational/educational purposes only.)THIS TEST WAS PERFORMED AT:[employer] [id number] [place] [address]JKQANOQSERGE COLEMAN MD,PHD 11/13/2024 1:11 PM EDT 11/13/2024 5:25 PM EDT [facility] LAB BLOOD ORDERABLES Final Resu lt Performing Organization Address [facility] Co de Phone Number [facility] [address] [place] [phone] * Syphilis Screen (10/23/2024 1:16 PM EDT) Pathologist [facility] Syphilis Screen Nonreactive Nonreactive [facility] Blood Venous blood specimen / Unknown 10/23/2024 1:16 PM EDT 10/23/2024 4:12 PM EDT [facility] LAB BLOOD ORDERABLES Final Resu lt Performing Organization Address [facility]/ZIP Co de Phone Number [facility] [address] [place] [phone] [phone] * CBC auto differential (10/23/2024 1:16 PM EDT) White Blood Count 5.2 4.8 - 10.8 X10*3/uL [facility] Red Blood Count 4.52 4.20 - 5.50 X10*6/uL [facility] Hemoglobin 14.1 12.0 - 16.0 g/dl [facility] Hematocrit 41.5 37.0 - 47.0 % [facility] Mean Corpuscular Volume 91.8 80.0 - 98.0 fL [facility] Mean Corpuscular Hemoglobin 31.2 27.0 - 33.0 pg [facility] Mean Corpuscular HGB Conc 34.0 31.0 - 35.0 g/dl [facility] Red Cell Distribution Width 12.1 11.0 - 16.0 % [facility] Platelet Count 319 160 - 400 X10*3/uL [facility] Mean Platelet Volume 11.5 9.4 - 12.3 fL [facility] Neutrophils Percent Auto 60.4 45 - 73 % [facility] Imm Gran Pct Auto 0.2 0.0 - 0.4 % [facility] Lymphocytes Percent Auto 32.1 20 - 40 % [facility] Monocytes Percent Auto 5.4 2 - 11 % [facility] Eosinophils Percent Auto 1.3 0 - 4 % [facility] Basophils Percent Auto 0.6 0 - 2 % [facility] NRBC Pct Auto 0.0 0.0 - 0.2 /100WBC [facility] Neutrophils Absolute Auto 3.2 2.0 - 8.3 x10*3/uL [facility] Imm Gran Abs Auto 0.01 0.00 - 0.03 X10*3/uL [facility] Lymphocytes Absolute Auto 1.7 1.2 - 4.9 X10*3/uL [facility] Monocytes Absolute Auto 0.3 0.1 - 1.2 X10*3/uL [facility] Eosinophils Absolute Auto 0.1 0.0 - 0.4 X10*3/uL [facility] Basophils Absolute Auto 0.0 0.0 - 0.2 X10*3/uL [facility] NRBC Abs Auto 0.000 0.0 - 0.012 X10*3/uL [facility] Blood Venous blood specimen / Unknown 10/23/2024 1:16 PM EDT 10/23/2024 4:12 PM EDT Leah Tapia FLAME PLAN[employer] LAB BLOOD ORDERABLES Final Resu lt [facility] [address] [place] [phone] * Hepatitis C Antibody with Reflex to HCV, RNA, Quantitative, Real-Time PCR (10/23/2024 1:16 PM EDT) Hepatitis C Antibody Nonreactive Nonreactive [facility] Comment:Antibodies to HCV no t detected; does not exclude early acuteHCV infection. Blood Venous blood specimen / Unknown 10/23/2024 1:16 PM EDT 10/23/2024 4:10 PM EDT Leah Tapia FLAME PLANER LAB BLOOD ORDERABLES Final Resu lt [facility] [address] [place] [phone] * Hepatitis B Surface Antigen, EIA (10/23/2024 1:16 PM EDT) Hepatitis B Surface Ag Negative Negative [facility] Blood Venous blood specimen / Unknown 10/23/2024 1:16 PM EDT 10/23/2024 4:10 PM EDT Leah Tapia FLAME PLANER LAB BLOOD ORDERABLES Final Resu lt [facility] [address] [place] [phone] * Hepatitis B Core Antibody, Total (10/23/2024 1:16 PM EDT) Hepatitis B Core Antibody Nonreactive Nonreactive [facility] Blood Venous blood specimen / Unknown 10/23/2024 1:16 PM EDT 10/23/2024 4:10 PM EDT [facility] BLOOD ORDERABLES Final Resu lt Performing Organization Address [facility]/ZIP Co de Phone Number [facility] [address] [place] [phone] * HIV-1/2 Antigen and Antibodies, Fourth Generation, with Reflexes (10/23/2024 1:16 PM EDT) Pathologist [facility] HIV AB/AG Nonreactive Nonreactive [facility] Comment:HIV-1 p24 Ag and/or HIV-1/HIV-2 Ab not detected.A test result that is nonreactive does not exclude thepossibility of exposure to or infection with HIV-1 and/orHIV-2. Nonreactive results in this assay for individualswith prior exposure to HIV-1 and/or HIV-2 may be due toantigen and antibody levels that are below the limit ofdetection of this assay.The [employer] HIV Ag/Ab Combo assay result andsupplemental assay results should be interpreted inconjunction with the patient's clinical presentation,history and other laboratory results. If the results areinconsistent with clinical evidence, additional testing issuggested to confirm the result. Blood Venous blood specimen / Unknown 10/23/2024 1:16 PM EDT 10/23/2024 4:10 PM EDT [facility] LAB BLOOD ORDERABLES Final Resu lt Performing Organization Address [facility]/ZIP Co de Phone Number [facility] [address] [place] [phone] * Hepatitis B Surface Antibody, Qualitative (10/23/2024 1:16 PM EDT) Pathologist [facility] ~Hepatitis B Surface Antibody REACTIVE Nonreactive [facility] Comment:REACTIVE: > 11.99 mI U/mL Blood Venous blood specimen / Unknown 10/23/2024 1:16 PM EDT 10/23/2024 4:10 PM EDT [facility] BLOOD ORDERABLES Final Resu lt Performing Organization Address [facility] Co de Phone Number [facility] [address] [place] [phone] * (ABNORMAL) Lipid Panel, Standard (10/23/2024 1:16 PM EDT) Triglycerides 137 <150 mg/dL [facility] Comment:Desirable Triglyceri de: less than 150 mg/dLBorderline High Triglyceride 150-199 mg/dLHigh Triglyceride: 200-499 mg/dLVery High Triglyceride: greater than or equal to 5OO mg/dL Cholesterol 154 <200 mg/dL [facility] Comment:Desirable Cholestero l: less than 200 mg/dLBorderline High Cholesterol: 200-239 mg/dLHigh Cholesterol: greater than 239 mg/dL LDL Cholesterol Calculated 91 <100 mg/dL [facility] Comment:Desirable LDL: less than 100 mg/dLNear Optimal/Above Optimal LDL: 110- 129 mg/dLBorderline High LDL: 130-159 mg/dLHigh LDL: 160-189 mg/dLVery High LDL: greater than or equal to 190 mg/dL HDL Cholesterol 36(L) >40 mg/dL [facility] Comment:Desirable HDL: great er than 40 mg/dL Note: This HDL assay may give artificially low results in patients with liver disease. Blood Venous blood specimen / Unknown 10/23/2024 1:16 PM EDT 10/23/2024 4:12 PM EDT Leah Stroud LAB BLOOD ORDERABLES Final Resu lt Performing Organization Address [facility]/ZIP Co de Phone Number [facility] [address] [place] [phone] from Last 3 Months Insurance [facility] C3 Care Teams Spice Fumigator Relationship Specialty Start Date End Date Leah Stroud NP [address] [place] [phone] PCP - General Family Medicine 01/09/23
--- OUTSIDE RECORDS SUMMARY | 2025-01-06 22:13 | XMS_ITS | Encounter Summary ---
Author Organization [employer] Address [address] [facility] [address] [place] [address] Care Team Providers Care Fountain Worker Name Role Phone Leah Stroud HOUSEHOLD APPLIANCES SALESPERSON Primary Care Provider Reason for Visit * Reason Onset Date Comments Lab Orders 09/24/2023 Encounter Details Date Type Department Care Team ([facility] st Contact Info) Description 09/24/2023 Telephone [facility] [address] [place], [place] [phone] Leah Stroud NP [address] [place] [address] Lab Orders Social History Tobacco Use Types [...] No answer. LVM to call back on [phone]. * Telephone Encounter - Kellie Roa - [...] documented as of this encounter Care Teams Fountain Worker Relationship Specialty Start Date End Date Leah Stroud NP [address] [place] [address] PCP - General Family Medicine 01/09/23 documented as of this encounter
--- OUTSIDE RECORDS SUMMARY | 2025-01-06 22:13 | XMS_ITS | Encounter Summary ---
Author Organization [employer] Address [address] [facility] [address] [place] [address] Care Team Providers Care Editor Book Name Role Phone Leah Stroud NP Primary Care Provider [phone] Encounter Details Date Type Department Care Team ([facility] st Contact Info) Description 11/19/2024 Results Follow-Up [facility] [address] [place] [address] Leah Stroud NP [address] [place] [address] T-SPOT .TB Social History Tobacco Use Types Packs/Day Years [...] documented as of this encounter Care Teams Editor Book Relationship Specialty Start Date End Date Leah Stroud NP [address] [place] [phone] PCP - General Family Medicine 01/09/23 documented as of this encounter
== END 2025-01-06 17:22 | disposition home or self-care (01) ==
LOC: HO.LNP 17:21
PROVIDERS: Visit Provider Pediatrics
DX: J02.9 Acute pharyngitis, unspecified (principal)
CPT/HCPCS: 87070